=== PATIENT | male | born 1930 | race Caucasian/White ===

== ENCOUNTER 2018-08-21 09:44 | Inpatient (IN) | payer OTHER, MEDICARE ==
--- NOTE | 2018-08-21 11:59 | PDOC ---
History of Present Illness - General Chief Complaint: Urinary Catheter Problem Stated Complaint: URINARY CATHETER PROBLEM Time Seen by Provider: 08/21/18 10:36 History Source: Patient Exam Limitations: No Limitations - History of Present Illness Travel History: No Initial Comments: 08/21/18 11:29 88-year-old male with history of BPH presents to the ED with lateral pressure and urinary retention since this morning. Patient states last emptied his bag this morning at around 5 AM which he described as yellowish urine without foul odor. Patient states 10 days ago had his Duval catheter changed by his urologist in [place] which is changed monthly. Patient denies fever, chills, cloudy urine, back pain but does state constipation for 2 days. Patient is from [place] and has been here since Sunday and will be returning in a few days. Timing/Duration: reports: getting worse Quality: reports: mild, fullness Abdominal Pain Onset Location: reports: suprapubic Pain Radiation: reports: no radiation Activities at Onset: reports: none Aggravating Factors: improves with: None Alleviating Factors: improves with: None Past History - Travel Traveled outside of the country in the last 30 days: No Close contact w/someone who was outside of country & ill: No - Past Medical History Allergies/Adverse Reactions: Allergies Allergy/AdvReac Type Severity Reaction Status Date / Time amoxicillin Allergy Verified 08/21/18 09:52 Home Medications: Ambulatory Orders Ciprofloxacin [Cipro (Restricted To Id)] 500 mg PO BID 5 Days #10 tablet COPD: No Disorders: Yes (bph) - Immunization History Immunization Up to Date: Yes - Suicide/Smoking/Psychosocial Hx Smoking History: Never smoked Have you smoked in the past 12 months: No Hx Alcohol Use: No Drug/Substance Use Hx: No Substance Use Type: None Patient Lives Alone: No Lives with/in: spouse/SO Abd/GI Specific PMHX - Complaint Specific PMHX Other History: bph Review of Systems - Review of Systems Able to Perform ROS?: Yes Constitutional: No: Symptoms Reported HEENTM: No: Symptoms Reported Respiratory: No: Symptoms reported Cardiac (ROS): No: Symptoms Reported ABD/GI: Yes: Constipated, Abdominal cramping. No: Nausea, Vomiting : Yes: Other Musculoskeletal: No: Symptoms Reported Integumentary: No: Symptoms Reported *Physical Exam - Vital Signs Last Vital Signs Temp Pulse Resp BP Pulse Ox 97.5 F L 94 H 16 163/83 95 08/21/18 09:53 08/21/18 09:53 08/21/18 09:53 08/21/18 09:53 08/21/18 09:53 - Physical Exam General Appearance: Yes: Nourished, Appropriately Dressed. No: Apparent Distress Cardiovascular: positive: Regular Rhythm, Regular Rate. negative: Murmur Gastrointestinal/Abdominal: positive: Soft, Distended (midsuprapubic), Tenderness Musculoskeletal: negative: CVA Tenderness Extremity: positive: Normal Capillary Refill Integumentary: positive: Normal Color, Warm, Moist Moderate Sedation - Procedure Monitoring Vital Signs: Procedure Monitoring Vital Signs Temperature 97.5 F L 08/21/18 09:53 Pulse Rate 94 H 08/21/18 09:53 Respiratory Rate 16 08/21/18 09:53 Blood Pressure 163/83 08/21/18 09:53 O2 Sat by Pulse Oximetry (%) 95 08/21/18 09:53 ED Treatment Course - RADIOLOGY Radiology Studies Ordered: Category Date Time Status KUB (KID UR & BLAD) [RAD] Stat Radiology 08/21/18 11:46 Ordered Medical Decision Making - Medical Decision Making 08/21/18 12:02 Complaint: Suprapubic pressure urinary retention since 5 AM and constipation 2 days. Patient with history of BPH with Duval catheter changed approximately 9- 10 days ago in [place] by his urologist where he resides. Exam: Suprapubic distention and tenderness on exam irrigated #18 Duval catheter with urine but experienced resistance. Plan : #18 Duval catheter reinserted without difficulty and drained approximately 800 mL of cloudy yellow urine. Patient ordered for KUB secondary to constipation complaints and a urinalysis /urine culture 08/21/18 12:46 fecal Debris seen throughout the nondistended colon. No evidence of intestinal obstruction. Radiolucency, loop of bowel projecting over his left inferior pubis ramus, clinically correlate for hernia. 08/21/18 13:44 Previous urine culture shows ESBL which is sensitive to meropenem imipenem and Zosyn. Patient will be given meropenem. Patient did state he saw an infectious disease in [place] and was told that the bacteria is " normal" for him. Laboratory Tests 08/21/18 12:26 Urine Protein 2+ H Urine Glucose (UA) 1+ H Urine Blood 1+ H Urine Nitrite Negative Urine Bilirubin Negative Urine Urobilinogen Negative Ur Leukocyte Esterase 3+ H Urine WBC (Auto) 224 Urine RBC (Auto) 5 *DC/Admit/Observation/Transfer Diagnosis at time of Disposition: UTI (urinary tract infection), Duval catheter in place - Discharge Dispostion Decision to Admit order: Yes - Referrals - Patient Instructions - Post Discharge Activity
[2018-08-21 12:50] LABS: URINE APPEARANCE CLOUDY; URINE BILIRUBIN NEGATIVE (<2.0 mg/dL); URINE COLOR YELLOW; URINE GLUCOSE (UA) 1+ (NEGATIVE); URINE KETONE NEGATIVE (NEGATIVE); URINE LEUK ESTERASE 3+ (NEGATIVE); URINE NITRITE NEGATIVE (NEGATIVE); URINE PROTEIN 2+ (NEGATIVE); URINE UROBILINOGEN NEGATIVE mg/dL (0.2-1.0)
[2018-08-21 13:05] LABS: URINE BACTERIA MODERATE /hpf (NONE SEEN); URINE MUCUS RARE
[2018-08-21] MEDS ORDERED: MEROPENEM 500 MG in DEXTROSE 5%-WATER 100 ML IVPB ONE (13:29)
[2018-08-21 14:12] LABS: BASO % 1.2 % (0-2.0); EOS % 0.5 % (0-4.5); HEMATOCRIT 38.5 % (35.4-49); HEMOGLOBIN 13.6 GM/dL (11.7-16.9); LYMPH % 9.7 % (8-40); MCH 33.6 pg (25.7-33.7); MCHC 35.3 g/dl (32.0-35.9); MEAN PLT VOLUME 10.1 fl (7.5-11.1); MONO % 6.3 % (3.8-10.2); NEUT % 82.3 % (42.8-82.8); PLATELET COUNT 143 K/MM3 (134-434); RBC 4.05 M/mm3 (4.00-5.60); RDW 14.2 % (11.9-15.9)
[2018-08-21 14:47] LABS: ALBUMIN 3.6 g/dl (3.4-5.0); ALK PHOS 67 U/L (45-117); ANION GAP 6 MMOL/L (8-16); BLOOD UREA NITROGEN 33 mg/dL (7-18); CALCIUM 8.2 mg/dL (8.5-10.1); CHLORIDE 108 mmol/L (98-107); CO2 27 mmol/L (21-32); CREATININE 1.6 mg/dL (0.55-1.3); GLUCOSE,RANDOM 116 mg/dL (74-106); POTASSIUM 4.1 mmol/L (3.5-5.1); SGOT/AST 17 U/L (15-37); SGPT/ALT 17 U/L (13-61); SODIUM 141 mmol/L (136-145); TOT PROT 6.8 g/dl (6.4-8.2)
--- NOTE | 2018-08-21 16:30 | HP ---
CHIEF COMPLAINT: Urinary retention PCP: Dr. Dumont ([place]) Urologist in [place] HISTORY OF PRESENT ILLNESS: Patient is an 88 year old male presented to the ED with the chief complaint of urinary retention. As per the patient, he has had urinary retention secondary to BPH since 1.5 yrs ago, has carreon in place since 1.5 yrs, changed each month at his doctors office, last changed was 8 days ago in [place], then came to [place]. Noticed this morning that there was minimal urine in the catheter bag, had severe pain in the suprapubic area, hence came in to the ED for further evaluation. Has had urinary retentions in the past. Patient states he was recently treated for UTI in [place] and thinks it was ESBL. Denies fever, chills, rigors, sweating, chest pain, sob, cough, palpitation, nausea or vomiting, no urinary symptoms, Bowel movement 2 day ago. Sleep/appetite normal. Ambulates independently. Patient also reports he was taking Benzicaar and Statins, his physicians told him to lose weight. After loosing 20 lbs, he stopped taking those meds. Takes Lasix PRN for leg swelling and Finasteride PRN Urine culture 04/16/18 shows Proteus mirabilus-ESBl sensitive to zosyn meropenam and ertapenam In the ED, carreon was changed, drained about 1300 ml of dark yellow urine. ER course was notable for: (1) Positive UA. Urine cultures sent (2) KUB (3) IV Meropenam Recent Travel: Came back from [place] 8 days ago. PAST MEDICAL HISTORY: HTN (diet controlled )HLD (diet controlled), BPH s/p 2 laser surgeries. 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[employer]) Family History: Non contributory Allergies amoxicillin Allergy (Verified 08/21/18 09:52) HOME MEDICATIONS: Home Medications Medication Instructions Recorded Ciprofloxacin [Cipro (Restricted 500 mg PO BID 5 Days #10 tablet 04/16/18 To Id)] REVIEW OF SYSTEMS CONSTITUTIONAL: Absent: fever, chills, diaphoresis, generalized weakness, malaise, loss of appetite, weight change HEENT: Absent: rhinorrhea, nasal congestion, throat pain, throat swelling, difficulty swallowing, mouth swelling, ear pain, eye pain, visual changes CARDIOVASCULAR: Absent: chest pain, syncope, palpitations, irregular heart rate, lightheadedness , peripheral edema RESPIRATORY: Absent: cough, shortness of breath, dyspnea with exertion, orthopnea, wheezing, stridor, hemoptysis GASTROINTESTINAL: Absent: abdominal pain, abdominal distension, nausea, vomiting, diarrhea, constipation, melena, hematochezia GENITOURINARY: Present: Urinary retention Absent: dysuria, frequency, urgency, hesitancy, hematuria, flank pain, genital pain MUSCULOSKELETAL: Absent: myalgia, arthralgia, joint swelling, back pain, neck pain SKIN: Absent: rash, itching, pallor HEMATOLOGIC/IMMUNOLOGIC: Absent: easy bleeding, easy bruising, lymphadenopathy, frequent infections ENDOCRINE: Absent: unexplained weight gain, unexplained weight loss, heat intolerance, cold intolerance NEUROLOGIC: Absent: headache, focal weakness or paresthesias, dizziness, unsteady gait, seizure, mental status changes, bladder or bowel incontinence PSYCHIATRIC: Absent: anxiety, depression, suicidal or homicidal ideation, hallucinations. PHYSICAL EXAMINATION Vital Signs - 24 hr 08/21/18 08/21/18 09:53 15:08 Temperature 97.5 F L Pulse Rate 94 H Pulse Rate [ 79 Right Radial] Respiratory 16 18 Rate Blood Pressure 163/83 Blood Pressure 115/62 [Left Arm] O2 Sat by Pulse 95 94 L Oximetry (%) GENERAL: Elderly male, sitting comfortably in bed, Awake, alert, and fully oriented, in no acute distress, carreon in place draining urine. HEAD: Normal with no signs of trauma. EYES: EOM intact, no pallor or icterus. EARS, NOSE, THROAT: Ears normal. Moist mucous membranes. NECK: Supple. LUNGS: B/L Breath sounds equal, clear to auscultation bilaterally. No wheezes, and no crackles. No accessory muscle use. HEART: Regular rate and rhythm, normal S1 and S2 without murmur. ABDOMEN: Soft, mild tenderness in suprapubic area, BS +, no organomegaly. MUSCULOSKELETAL: Normal range of motion at all joints. No bony deformities or tenderness. No CVA tenderness. UPPER EXTREMITIES: 2+ pulses, warm, well-perfused. No cyanosis. No clubbing. No peripheral edema. LOWER EXTREMITIES: 2+ pulses, warm, well-perfused. No calf tenderness. No peripheral edema. NEUROLOGICAL: No facial droop. Power 5.5 in all ext. Cranial nerves II-XII intact. Normal speech. Gait not observed. PSYCHIATRIC: Cooperative. Good eye contact. Appropriate mood and affect. SKIN: Warm, dry, normal turgor, no rashes or lesions noted, normal capillary refill. Laboratory Results - last 24 hr 08/21/18 08/21/18 08/21/18 12:26 14:00 14:00 WBC 8.0 RBC 4.05 Hgb 13.6 Hct 38.5 MCV 95.0 MCH 33.6 MCHC 35.3 RDW 14.2 Plt Count 143 MPV 10.1 Absolute Neuts (auto) 6.5 Neutrophils % 82.3 Lymphocytes % 9.7 Monocytes % 6.3 Eosinophils % 0.5 Basophils % 1.2 Nucleated RBC % 0 Sodium 141 Potassium 4.1 Chloride 108 H Carbon Dioxide 27 Anion Gap 6 L BUN 33 H Creatinine 1.6 H Creat Clearance w eGFR 41.00 Random Glucose 116 H Calcium 8.2 L Total Bilirubin 1.0 AST 17 ALT 17 Alkaline Phosphatase 67 Total Protein 6.8 Albumin 3.6 Urine Color Yellow Urine Appearance Cloudy Urine pH 7.0 D Ur Specific [place] 1.015 Urine Protein 2+ H Urine Glucose (UA) 1+ H Urine Ketones Negative Urine Blood 1+ H Urine Nitrite Negative Urine Bilirubin Negative Urine Urobilinogen Negative Ur Leukocyte Esterase 3+ H Urine WBC (Auto) 224 Urine RBC (Auto) 5 Urine Bacteria Moderate Urine Mucus Rare ASSESSMENT/PLAN: Patient is an 88 year old male with significant past medical hx of HTN (diet controlled )HLD (diet controlled), BPH s/p 2 laser surgeries presented to the ED with the chief complaint of urinary retention. # Urinary tract infection Carreon since 1.5 yrs, changed every month, last changed 8 days ago, comes in with urinary retention Positive UA. No signs of sepsis. Admit to Med/Surg Urine culture 04/16/18 shows Proteus mirabilus-ESBl sensitive to zosyn meropenam and ertapenam One dose of Meropenam was given. (no allergic reaction) Will continue IV Meropenam Consult ID (Dr. Morgan) Urine culture pending # Urinary retention likely secondary to BPH Hx of BPH s/p 2 laser surgeries Continue Carreon (changed today) Continue Finasteride # Acute Kidney Injury likely prerenal creatinine 1.6 (baseline unknown). Will send urine electrolytes, renal ultrasound IV NS @ 83 mls/hr Avoid nephrotoxic drugs # Impacted Stool Seen in KUB. Last BM 2 days ago Start colace and senna # HTN/HLD diet controlled # FEN IV NS @ 83 ml/shr Electrolytes WNL Sodium controlled diet # Prophylaxis For DVT: On Heparin sq For GI: Not indicated # COde Status: Full Code Dispo: Admit to med.surg. Duration of stay unknown. Illness, Investigation and Plan of care explained to the patient and his daughter over the phone. They verbalized understanding. Case discussed with Dr. Noriega. Problem List - Problem (1) Carreon catheter in place Code(s): Z92.89 - PERSONAL HISTORY OF OTHER MEDICAL TREATMENT (2) UTI (urinary tract infection) Code(s): N39.0 - URINARY TRACT INFECTION, SITE NOT SPECIFIED Visit type - Emergency Visit Emergency Visit: Yes ED Registration Date: 08/21/18 Care time: The patient presented to the Emergency Department on the above date and was hospitalized for further evaluation of their emergent condition. - New Patient This patient is new to me today: Yes Date on this admission: 08/21/18 - Critical Care Critical Care patient: No
--- NOTE | 2018-08-21 16:54 | PN ---
Teaching Attending Note Name of Resident: Abena Almendarez ATTENDING PHYSICIAN STATEMENT I saw and evaluated the patient. I reviewed the resident's note and discussed the case with the resident. I agree with the resident's findings and plan as documented. SUBJECTIVE: Mr Preciado is a pleasant 88 year old male with history of BPH requiring chronic carreon placement who presents with abdominal pain and urinary retention. He is visiting from [place], prior to coming here he saw his urologist who changed his carreon catheter. He has it changed monthly. Last evening he noted that he was having less drainage and this morning he noted that he had no drainage and developed 10/10 suprapubic pain that radiated to his penis. He presented to the ER and his carreon was changed. After this he drained over 1000mL of purulent looking urine. He currently is without complaint. OBJECTIVE: Vital Signs - 24 hr 08/21/18 08/21/18 09:53 15:08 Temperature 36.4 C L Pulse Rate 94 H Pulse Rate [ 79 Right Radial] Respiratory 16 18 Rate Blood Pressure 163/83 Blood Pressure 115/62 [Left Arm] O2 Sat by Pulse 95 94 L Oximetry (%) Gen: nad Pulm: ctab w/o w/r/r CV: rrr w/o m/r/g Abd: +bs, s/nt/nd : carreon in place, clear urine with sediment Ext: no c/c/e CBC, BMP 08/21/18 14:00 08/21/18 14:00 Urine Test Results Urine Color Yellow 08/21/18 12: Urine Appearance Cloudy 08/21/18 12:26 Urine pH 7.0 (5.0-8.0) D 08/21/18 12:26 Ur Specific [place] 1.015 (1.010-1.035) 08/21/18 12:26 Urine Protein 2+ (NEGATIVE) H 08/21/18 12:26 Urine Glucose (UA) 1+ (NEGATIVE) H 08/21/18 12:26 Urine Ketones Negative (NEGATIVE) 08/21/18 12:26 Urine Blood 1+ (NEGATIVE) H 08/21/18 12:26 Urine Nitrite Negative (NEGATIVE) 08/21/18 12:26 Urine Bilirubin Negative (<2.0 mg/dL) 08/21/18 12:26 Ur Leukocyte Esterase 3+ (NEGATIVE) H 08/21/18 12:26 Urine Bacteria Moderate /hpf (NONE SEEN) 08/21/18 12:26 Urine Mucus Rare 08/21/18 12:26 Problem List - Problems (1) UTI (urinary tract infection) Assessment/Plan: -admit to med/surg -follow up urine cultures -history of E coli ESBL, continue merrem -ID consulted -carreon changed in ED Code(s): N39.0 - URINARY TRACT INFECTION, SITE NOT SPECIFIED Qualifiers: Urinary tract infection type: catheter-associated UTI Indwelling urinary catheter type: indwelling urethral catheter Encounter type: initial encounter Qualified Code(s): T83.511A - Infection and inflammatory reaction due to indwelling urethral catheter, initial encounter; N39.0 - Urinary tract infection , site not specified (2) BPH (benign prostatic hyperplasia) Assessment/Plan: -carreon changed -continue finasteride Code(s): N40.0 - BENIGN PROSTATIC HYPERPLASIA WITHOUT LOWER URINRY TRACT SYMP Qualifiers: Lower urinary tract symptom presence: symptoms present Lower urinary tract symptom detail: urinary retention Qualified Code(s): N40.1 - Benign prostatic hyperplasia with lower urinary tract symptoms; R33.8 - Other retention of urine (3) FARAZ (acute kidney injury) Assessment/Plan: -hydrate with IVF -renal ultrasound -monitor for improvement -may be CKD 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
[2018-08-21 20:10] VITALS: BMI 34.9
[2018-08-21] MEDS: HEPARIN NA (PORCINE) 5,000 UNITS/ML 1ML VIAL SQ SCH ×2 (21:59→22:02)
[2018-08-21] MEDS: SODIUM CHLORIDE 0.45% 1,000 ML IV SCH (21:59)
[2018-08-22] MEDS: HEPARIN NA (PORCINE) 5,000 UNITS/ML 1ML VIAL SQ SCH ×3 (05:15→22:40)
[2018-08-22] MEDS: MEROPENEM 1 GM in DEXTROSE 5%-WATER 100 ML IVPB SCH ×4 (07:17→17:08)
[2018-08-22 07:20] LABS: BASO % 1.2 % (0-2.0); EOS % 3.5 % (0-4.5); HEMATOCRIT 37.5 % (35.4-49); HEMOGLOBIN 12.2 GM/dL (11.7-16.9); LYMPH % 19.5 % (8-40); MCH 31.4 pg (25.7-33.7); MCHC 32.6 g/dl (32.0-35.9); MEAN CELL VOLUME 96.3 fl (80-96); MEAN PLT VOLUME 10.3 fl (7.5-11.1); MONO % 8.6 % (3.8-10.2); NEUT % 67.2 % (42.8-82.8); PLATELET COUNT 120 K/MM3 (134-434); RDW 14.5 % (11.9-15.9); WHITE BLOOD COUNT 5.7 K/mm3 (4.0-10.0)
[2018-08-22 07:33] LABS: ANION GAP 6 MMOL/L (8-16); BLOOD UREA NITROGEN 27 mg/dL (7-18); CALCIUM 7.7 mg/dL (8.5-10.1); CHLORIDE 111 mmol/L (98-107); CO2 25 mmol/L (21-32); CREATININE 1.4 mg/dL (0.55-1.3); GLUCOSE,RANDOM 99 mg/dL (74-106); MAGNESIUM 2.1 mg/dL (1.8-2.4); PHOSPHOROUS 2.9 mg/dL (2.5-4.9); POTASSIUM 3.6 mmol/L (3.5-5.1); SODIUM 142 mmol/L (136-145)
[2018-08-22] MEDS: SODIUM CHLORIDE 0.45% 1,000 ML IV SCH (10:55)
[2018-08-22] MEDS: FINASTERIDE 5 MG TABLET (FP) PO SCH (10:56)
[2018-08-22] MEDS: ASPIRIN COATED 81 MG TABLET.EC PO SCH (10:56)
[2018-08-22] MEDS: DOCUSATE SODIUM 100 MG CAPSULE (FP) PO PRN (10:56)
[2018-08-22] MEDS: SENNOSIDES 8.6MG TABLET (FP) PO PRN (10:57)
--- NOTE | 2018-08-22 11:02 | CON.ID ---
Consult Consult Specialty:: infectious diseases Referred by:: Reason for Consultation:: uti,complicated - History of Present Illness Chief Complaint: inability to pass urine and pain History of Present Illness: 88 year old male presented to the ED with the chief complaint of urinary retention. As per the patient, he has had urinary retention secondary to BPH since 1.5 yrs ago, has carreon in place since 1.5 yrs, changed each month at his doctors office, last changed was 8 days ago in [place], then came to [place]. Noticed this morning that there was minimal urine in the catheter bag, had severe pain in the suprapubic area, hence came in to the ED for further evaluation. Has had urinary retentions in the past. patient was send to infectious diseases in [place] since the urine was esbl and was treated for it ,the stain was mdr esbl denies any fever or chills in the ed patients catheter was changed and patient currently feeling much better also his urine is already positive for proteus again awaiting for the sensitivities - History Source History Provided By: Patient Limitations to Obtaining History: No Limitations - Alcohol/Substance Use Hx Alcohol Use: No - Smoking History Smoking history: Never smoked Have you smoked in the past 12 months: No Home Medications - Allergies Allergies/Adverse Reactions: Allergies Allergy/AdvReac Type Severity Reaction Status Date / Time amoxicillin Allergy Verified 08/21/18 09:52 - Home Medications Home Medications: Ambulatory Orders Ciprofloxacin [Cipro (Restricted To Id)] 500 mg PO BID 5 Days #10 tablet Review of Systems - Review of Systems Constitutional: reports: No Symptoms Eyes: reports: No Symptoms HENT: reports: No Symptoms Neck: reports: No Symptoms Cardiovascular: reports: No Symptoms Respiratory: reports: No Symptoms Gastrointestinal: reports: No Symptoms Genitourinary: reports: Other (urinary retention) Musculoskeletal: reports: No Symptoms Integumentary: reports: No Symptoms Neurological: reports: No Symptoms Endocrine: reports: No Symptoms Hematology/Lymphatic: reports: No Symptoms Psychiatric: reports: No Symptoms Physical Exam Vital Signs: Vital Signs Temperature 97.8 F 08/22/18 05:24 Pulse Rate 72 08/22/18 05:24 Respiratory Rate 18 08/22/18 05:24 Blood Pressure 155/72 08/22/18 05:24 O2 Sat by Pulse Oximetry (%) 97 08/21/18 21:00 Constitutional: Yes: Well Nourished, No Distress, Calm Eyes: Yes: Conjunctiva Clear HENT: Yes: Atraumatic, Normocephalic Neck: Yes: Supple, Trachea Midline Cardiovascular: Yes: Regular Rate and Rhythm Respiratory: Yes: Regular, CTA Bilaterally Gastrointestinal: Yes: Normal Bowel Sounds, Soft Renal/: Yes: Carreon Present Musculoskeletal: Yes: WNL Extremities: Yes: WNL Neurological: Yes: Alert, Oriented Psychiatric: Yes: Alert, Oriented Labs: CBC, BMP 08/22/18 06:15 08/22/18 06:15 Imaging - Results X-ray: Report Reviewed, Image Reviewed Ultrasound: Report Reviewed, Image Reviewed Assessment/Plan Problem List - Problems (1) UTI (urinary tract infection) Code(s): N39.0 - URINARY TRACT INFECTION, SITE NOT SPECIFIED Qualifiers: Urinary tract infection type: catheter-associated UTI Indwelling urinary catheter type: indwelling urethral catheter Encounter type: initial encounter Qualified Code(s): T83.511A - Infection and inflammatory reaction due to indwelling urethral catheter, initial encounter; N39.0 - Urinary tract infection , site not specified (2) BPH (benign prostatic hyperplasia) Code(s): N40.0 - BENIGN PROSTATIC HYPERPLASIA WITHOUT LOWER URINRY TRACT SYMP Qualifiers: Lower urinary tract symptom presence: symptoms present Lower urinary tract symptom detail: urinary retention Qualified Code(s): N40.1 - Benign prostatic hyperplasia with lower urinary tract symptoms; R33.8 - Other retention of urine (3) FARAZ (acute kidney injury) Code(s): N17.9 - ACUTE KIDNEY FAILURE, UNSPECIFIED patient was started on huseyin plan agree with huseyin await for sensitivities once we have that will adjust abx rest as per the team
--- NOTE | 2018-08-22 15:04 | PN ---
Teaching Attending Note Name of Resident: Abena Almendarez ATTENDING PHYSICIAN STATEMENT I saw and evaluated the patient. I reviewed the resident's note and discussed the case with the resident. I agree with the resident's findings and plan as documented. SUBJECTIVE: Mr Preciado is without complaint today. Denies cp, sob, n/v. Carreon draining without difficulty OBJECTIVE: Last Vital Signs Temp Pulse Resp BP Pulse Ox 36.9 C 79 20 109/73 97 08/22/18 14:46 08/22/18 14:46 08/22/18 14:46 08/22/18 14:46 08/21/18 21:00 Gen: nad Pulm: ctab w/o w/r/r CV: rrr w/o m/r/g Abd: +bs, s/nt/nd Ext: no c/c/e CBC, BMP 08/22/18 06:15 08/22/18 06:15 (1) UTI (urinary tract infection) Assessment/Plan: -case d/w ID -currently growing proteus -last admission was ESBL proteus -continue merrem Code(s): N39.0 - URINARY TRACT INFECTION, SITE NOT SPECIFIED Qualifiers: Urinary tract infection type: catheter-associated UTI Indwelling urinary catheter type: indwelling urethral catheter Encounter type: initial encounter Qualified Code(s): T83.511A - Infection and inflammatory reaction due to indwelling urethral catheter, initial encounter; N39.0 - Urinary tract infection , site not specified (2) BPH (benign prostatic hyperplasia) Assessment/Plan: -carreon changed -continue finasteride Code(s): N40.0 - BENIGN PROSTATIC HYPERPLASIA WITHOUT LOWER URINRY TRACT SYMP Qualifiers: Lower urinary tract symptom presence: symptoms present Lower urinary tract symptom detail: urinary retention Qualified Code(s): N40.1 - Benign prostatic hyperplasia with lower urinary tract symptoms; R33.8 - Other retention of urine (3) FARAZ (acute kidney injury) Assessment/Plan: -improved today -monitor for improvement Code(s): N17.9 - ACUTE KIDNEY FAILURE, UNSPECIFIED Problem List - Problems (1) UTI (urinary tract infection) Code(s): N39.0 - URINARY TRACT INFECTION, SITE NOT SPECIFIED Qualifiers: Urinary tract infection type: catheter-associated UTI Indwelling urinary catheter type: indwelling urethral catheter Encounter type: initial encounter Qualified Code(s): T83.511A - Infection and inflammatory reaction due to indwelling urethral catheter, initial encounter; N39.0 - Urinary tract infection , site not specified (2) BPH (benign prostatic hyperplasia) Code(s): N40.0 - BENIGN PROSTATIC HYPERPLASIA WITHOUT LOWER URINRY TRACT SYMP Qualifiers: Lower urinary tract symptom presence: symptoms present Lower urinary tract symptom detail: urinary retention Qualified Code(s): N40.1 - Benign prostatic hyperplasia with lower urinary tract symptoms; R33.8 - Other retention of urine (3) FARAZ (acute kidney injury) Code(s): N17.9 - ACUTE KIDNEY FAILURE, UNSPECIFIED
--- NOTE | 2018-08-22 16:32 | PN ---
Physical Exam: SUBJECTIVE: Patient seen and examined at bed side this morning. States he is feeling better. Good appetite. Abdominal pain has resolved. Denies nausea, vomiting, chest pain, sob, cough, palpitation. BM today. No acute overnight events. OBJECTIVE: Vital Signs Period Temp Pulse Resp BP Sys/Mae Pulse Ox Last 24 Hr 97.8 F-98.4 F 71-79 18-20 109-155/72-84 97-99 GENERAL: Elderly male, sitting comfortably in bed, Awake, alert, and fully oriented, in no acute distress, carreon in place draining urine. HEAD: Normal with no signs of trauma. EYES: EOM intact, no pallor or icterus. EARS, NOSE, THROAT: Ears normal. Moist mucous membranes. NECK: Supple. LUNGS: B/L Breath sounds equal, clear to auscultation bilaterally. No wheezes, and no crackles. No accessory muscle use. HEART: Regular rate and rhythm, normal S1 and S2 without murmur. ABDOMEN: Soft, mild tenderness in suprapubic area, BS +, no organomegaly. MUSCULOSKELETAL: Normal range of motion at all joints. No bony deformities or tenderness. No CVA tenderness. UPPER EXTREMITIES: 2+ pulses, warm, well-perfused. No cyanosis. No clubbing. No peripheral edema. LOWER EXTREMITIES: 2+ pulses, warm, well-perfused. No calf tenderness. No peripheral edema. NEUROLOGICAL: No facial droop. Power 5.5 in all ext. Cranial nerves II-XII intact. Normal speech. Gait not observed. PSYCHIATRIC: Cooperative. Good eye contact. Appropriate mood and affect. SKIN: Warm, dry, normal turgor, no rashes or lesions noted, normal capillary refill. Laboratory Results - last 24 hr 08/22/18 08/22/18 06:15 06:15 WBC 5.7 RBC 3.90 L Hgb 12.2 Hct 37.5 MCV 96.3 H MCH 31.4 MCHC 32.6 RDW 14.5 Plt Count 120 L MPV 10.3 Absolute Neuts (auto) 3.8 Neutrophils % 67.2 Lymphocytes % 19.5 D Monocytes % 8.6 Eosinophils % 3.5 D Basophils % 1.2 Nucleated RBC % 0 Sodium 142 Potassium 3.6 Chloride 111 H Carbon Dioxide 25 Anion Gap 6 L BUN 27 H Creatinine 1.4 H Creat Clearance w eGFR 47.83 Random Glucose 99 Calcium 7.7 L Phosphorus 2.9 Magnesium 2.1 Active Medications Generic Name Dose Route Start Last Admin Trade Name Freq PRN Reason Stop Dose Admin Aspirin 81 mg 08/22/18 10:00 08/22/18 10:56 Ecotrin - PO 81 mg DAILY SIMON Administration Docusate Sodium 100 mg 08/21/18 16:35 08/22/18 10:56 Colace - PO 100 mg BID PRN Administration CONSTIPATION Finasteride 5 mg 08/22/18 10:00 08/22/18 10:56 Proscar - PO 5 mg DAILY SIMON Administration Heparin Sodium (Porcine) 5,000 unit 08/21/18 22:00 08/22/18 14:52 Heparin - SQ 5,000 unit TID SIMON Administration Sodium Chloride 1,000 mls @ 83 mls/hr 08/21/18 16:30 08/22/18 10:55 1/2 Normal Saline IV 83 mls/hr ASDIR SIMON Administration Meropenem 1 gm/ Dextrose 100 mls @ 200 mls/hr 08/22/18 11:15 08/22/18 11:12 IVPB 200 mls/hr Q8H-IV SIMON Administration Senna 2 tab 08/21/18 22:00 08/22/18 10:57 Senna - PO 2 tab HS PRN Administration CONSTIPATION ASSESSMENT/PLAN: Patient is an 88 year old male with significant past medical hx of HTN (diet controlled )HLD (diet controlled), BPH s/p 2 laser surgeries presented to the ED with the chief complaint of urinary retention. # Urinary tract infection Positive UA. Urine culture grew Proteus, c/s pending Urine culture 04/16/18 shows Proteus mirabilus-ESBl sensitive to zosyn meropenam and ertapenam Continue IV Meropenem Day 2 Carreon since 1.5 yrs, changed every month, last changed 8 days ago prior to admission. Carreon changed in the ED 08/21/18 # Urinary retention likely secondary to BPH Hx of BPH s/p 2 laser surgeries Continue Carreon (changed 08/11/18) Continue Finasteride # Acute Kidney Injury likely prerenal creatinine 1.6---> 1.4 (baseline unknown). Renal ultrasound shows 8 cm left renal and 4 cm right renal cortical cysts. IV NS @ 83 mls/hr Avoid nephrotoxic drugs # Impacted Stool Seen in [facility]. Last BM 2 days ago Start colace and senna. Had BM today. # HTN/HLD diet controlled # FEN Discontinued IV fluids, can tolerate PO Electrolytes WNL Sodium controlled diet # Prophylaxis For DVT: On Heparin sq For GI: Not indicated # COde Status: Full Code Dispo: Admit to med.surg. Duration of stay unknown. Illness, Investigation and Plan of care explained to the patient and his daughter over the phone. They verbalized understanding. Case discussed with Dr. Noriega. Problem List - Problems (1) Carreon catheter in place Code(s): Z92.89 - PERSONAL HISTORY OF OTHER MEDICAL TREATMENT (2) UTI (urinary tract infection) Code(s): N39.0 - URINARY TRACT INFECTION, SITE NOT SPECIFIED Qualifiers: Urinary tract infection type: catheter-associated UTI Indwelling urinary catheter type: indwelling urethral catheter Encounter type: initial encounter Qualified Code(s): T83.511A - Infection and inflammatory reaction due to indwelling urethral catheter, initial encounter; N39.0 - Urinary tract infection , site not specified Visit type - Emergency Visit Emergency Visit: Yes ED Registration Date: 08/21/18 Care time: The patient presented to the Emergency Department on the above date and was hospitalized for further evaluation of their emergent condition. - New Patient This patient is new to me today: No - Critical Care Critical Care patient: No - Discharge Referral Referred to [facility] Med P.C.: No
[2018-08-23] MEDS: MEROPENEM 1 GM in DEXTROSE 5%-WATER 100 ML IVPB SCH ×5 (01:45→17:37)
[2018-08-23] MEDS: DOCUSATE SODIUM 100 MG CAPSULE (FP) PO PRN (06:23)
[2018-08-23] MEDS: HEPARIN NA (PORCINE) 5,000 UNITS/ML 1ML VIAL SQ SCH ×3 (06:23→21:37)
[2018-08-23] MEDS: SENNOSIDES 8.6MG TABLET (FP) PO PRN (06:23)
[2018-08-23 07:15] LABS: HEMATOCRIT 40.2 % (35.4-49); MCH 31.2 pg (25.7-33.7); MCHC 32.3 g/dl (32.0-35.9); MEAN CELL VOLUME 96.5 fl (80-96); MEAN PLT VOLUME 10.7 fl (7.5-11.1); PLATELET COUNT 131 K/MM3 (134-434); RBC 4.16 M/mm3 (4.00-5.60); WHITE BLOOD COUNT 7.3 K/mm3 (4.0-10.0)
[2018-08-23] MEDS: SODIUM CHLORIDE 0.45% 1,000 ML IV SCH (07:47)
[2018-08-23 07:50] LABS: ANION GAP 9 MMOL/L (8-16); BLOOD UREA NITROGEN 29 mg/dL (7-18); CALCIUM 7.9 mg/dL (8.5-10.1); CHLORIDE 111 mmol/L (98-107); CO2 23 mmol/L (21-32); CREATININE 1.5 mg/dL (0.55-1.3); GLUCOSE,RANDOM 102 mg/dL (74-106); POTASSIUM 4.2 mmol/L (3.5-5.1); SODIUM 142 mmol/L (136-145)
[2018-08-23] MEDS: ASPIRIN COATED 81 MG TABLET.EC PO SCH (09:33)
[2018-08-23] MEDS: FINASTERIDE 5 MG TABLET (FP) PO SCH (09:33)
--- NOTE | 2018-08-23 11:49 | PN ---
Progress Note, Physician History of Present Illness: stable doing well no new issues cx results noted - Current Medication List Current Medications: Active Medications Aspirin (Ecotrin -) 81 mg PO DAILY [facility] Last Admin: 08/23/18 09:33 Dose: 81 mg Docusate Sodium (Colace -) 100 mg PO BID PRN PRN Reason: CONSTIPATION Last Admin: 08/23/18 06:23 Dose: 100 mg Finasteride (Proscar -) 5 mg PO DAILY [facility] Last Admin: 08/23/18 09:33 Dose: 5 mg Heparin Sodium (Porcine) (Heparin -) 5,000 unit SQ TID [facility] Last Admin: 08/23/18 06:23 Dose: 5,000 unit Meropenem 1 gm/ Dextrose 100 mls @ 200 mls/hr IVPB Q8H-IV [facility] Last Admin: 08/23/18 09:32 Dose: 200 mls/hr Senna (Senna -) 2 tab PO HS PRN PRN Reason: CONSTIPATION Last Admin: 08/23/18 06:23 Dose: 2 tab - Objective Vital Signs: Vital Signs Temperature 97.9 F 08/23/18 09:00 Pulse Rate 57 L 08/23/18 09:00 Respiratory Rate 20 08/23/18 09:00 Blood Pressure 154/92 08/23/18 09:00 O2 Sat by Pulse Oximetry (%) 96 08/23/18 09:00 Constitutional: Yes: No Distress, Calm Cardiovascular: Yes: Regular Rate and Rhythm Respiratory: Yes: Regular, CTA Bilaterally Gastrointestinal: Yes: Normal Bowel Sounds, Soft Genitourinary: Yes: Duval Present Musculoskeletal: Yes: WNL Extremities: Yes: WNL Neurological: Yes: Alert, Oriented Psychiatric: Yes: Alert, Oriented Labs: CBC, BMP 08/23/18 06:15 08/23/18 06:15 Assessment/Plan Problem List - Problems (1) UTI (urinary tract infection) Code(s): N39.0 - URINARY TRACT INFECTION, SITE NOT SPECIFIED Qualifiers: Urinary tract infection type: catheter-associated UTI Indwelling urinary catheter type: indwelling urethral catheter Encounter type: initial encounter Qualified Code(s): T83.511A - Infection and inflammatory reaction due to indwelling urethral catheter, initial encounter; N39.0 - Urinary tract infection , site not specified (2) BPH (benign prostatic hyperplasia) Code(s): N40.0 - BENIGN PROSTATIC HYPERPLASIA WITHOUT LOWER URINRY TRACT SYMP Qualifiers: Lower urinary tract symptom presence: symptoms present Lower urinary tract symptom detail: urinary retention Qualified Code(s): N40.1 - Benign prostatic hyperplasia with lower urinary tract symptoms; R33.8 - Other retention of urine (3) FARAZ (acute kidney injury) Code(s): N17.9 - ACUTE KIDNEY FAILURE, UNSPECIFIED patient was started on huseyin plan change abx to oral as planned rest as per the team
[2018-08-23] MEDS ORDERED: PT OWN MED DRAWER 7, Y5N ONE (17:03)
--- NOTE | 2018-08-23 17:27 | PN ---
Teaching Attending Note Name of Resident: Abena Almendarez ATTENDING PHYSICIAN STATEMENT I saw and evaluated the patient. I reviewed the resident's note and discussed the case with the resident. I agree with the resident's findings and plan as documented. SUBJECTIVE: Mr Preciado is without complaint. Denies cp, sob, n/v. OBJECTIVE: Last Vital Signs Temp Pulse Resp BP Pulse Ox 36.7 C 65 20 150/75 96 08/23/18 13:56 08/23/18 13:56 08/23/18 13:56 08/23/18 13:56 08/23/18 09:00 Gen: nad Pulm: ctab w/o w/r/r CV: rrr w/o m/r/g Abd: +bs, s/nt/nd Ext: no c/c/e CBC, BMP 08/23/18 06:15 08/23/18 06:15 ASSESSMENT AND PLAN: (1) UTI (urinary tract infection) Assessment/Plan: -case d/w ID -growing proteus, not ESBL -continue merrem today -transition to oral cephalosporin for full course tomorrow -discharge tomorrow Code(s): N39.0 - URINARY TRACT INFECTION, SITE NOT SPECIFIED Qualifiers: Urinary tract infection type: catheter-associated UTI Indwelling urinary catheter type: indwelling urethral catheter Encounter type: initial encounter Qualified Code(s): T83.511A - Infection and inflammatory reaction due to indwelling urethral catheter, initial encounter; N39.0 - Urinary tract infection , site not specified (2) BPH (benign prostatic hyperplasia) Assessment/Plan: -carreon changed -continue finasteride Code(s): N40.0 - BENIGN PROSTATIC HYPERPLASIA WITHOUT LOWER URINRY TRACT SYMP Qualifiers: Lower urinary tract symptom presence: symptoms present Lower urinary tract symptom detail: urinary retention Qualified Code(s): N40.1 - Benign prostatic hyperplasia with lower urinary tract symptoms; R33.8 - Other retention of urine (3) FARAZ (acute kidney injury) Assessment/Plan: -stable -suspect at baseline and has CKD Code(s): N17.9 - ACUTE KIDNEY FAILURE, UNSPECIFIED Problem List - Problems (1) UTI (urinary tract infection) Code(s): N39.0 - URINARY TRACT INFECTION, SITE NOT SPECIFIED Qualifiers: Urinary tract infection type: catheter-associated UTI Indwelling urinary catheter type: indwelling urethral catheter Encounter type: initial encounter Qualified Code(s): T83.511A - Infection and inflammatory reaction due to indwelling urethral catheter, initial encounter; N39.0 - Urinary tract infection , site not specified (2) BPH (benign prostatic hyperplasia) Code(s): N40.0 - BENIGN PROSTATIC HYPERPLASIA WITHOUT LOWER URINRY TRACT SYMP Qualifiers: Lower urinary tract symptom presence: symptoms present Lower urinary tract symptom detail: urinary retention Qualified Code(s): N40.1 - Benign prostatic hyperplasia with lower urinary tract symptoms; R33.8 - Other retention of urine (3) FARAZ (acute kidney injury) Code(s): N17.9 - ACUTE KIDNEY FAILURE, UNSPECIFIED
--- NOTE | 2018-08-23 18:01 | PN ---
Physical Exam: SUBJECTIVE: Patient seen and examined at bed side this morning. Symptoms have completely resolved. Denies Abdominal pain, nausea, vomiting, chest pain, sob, cough, palpitation. BM today. No acute overnight events. OBJECTIVE: Vital Signs Period Temp Pulse Resp BP Sys/Mae Pulse Ox Last 24 Hr 97.7 F-98.3 F 57-77 18-20 120-167/64-92 96-98 GENERAL: Elderly male, sitting comfortably in bed, Awake, alert, and fully oriented, in no acute distress, carreon in place draining urine. HEAD: Normal with no signs of trauma. EYES: EOM intact, no pallor or icterus. EARS, NOSE, THROAT: Ears normal. Moist mucous membranes. NECK: Supple. LUNGS: B/L Breath sounds equal, clear to auscultation bilaterally. No wheezes, and no crackles. No accessory muscle use. HEART: Regular rate and rhythm, normal S1 and S2 without murmur. ABDOMEN: Soft, mild tenderness in suprapubic area, BS +, no organomegaly. MUSCULOSKELETAL: Normal range of motion at all joints. No bony deformities or tenderness. No CVA tenderness. UPPER EXTREMITIES: 2+ pulses, warm, well-perfused. No cyanosis. No clubbing. No peripheral edema. LOWER EXTREMITIES: 2+ pulses, warm, well-perfused. No calf tenderness. No peripheral edema. NEUROLOGICAL: No facial droop. Power 5.5 in all ext. Cranial nerves II-XII intact. Normal speech. Gait not observed. PSYCHIATRIC: Cooperative. Good eye contact. Appropriate mood and affect. SKIN: Warm, dry, normal turgor, no rashes or lesions noted, normal capillary refill. Laboratory Results - last 24 hr 08/22/18 08/22/18 08/23/18 23:00 23:00 06:15 WBC 7.3 RBC 4.16 Hgb 13.0 Hct 40.2 MCV 96.5 H MCH 31.2 MCHC 32.3 RDW 14.0 Plt Count 131 L MPV 10.7 Sodium Potassium Chloride Carbon Dioxide Anion Gap BUN Creatinine Creat Clearance w eGFR Random Glucose Calcium Ur Random Sodium 82 Ur Random Potassium 44.7 Ur Random Chloride 102 L Urine Creatinine 111.0 H 08/23/18 06:15 WBC RBC Hgb Hct MCV MCH MCHC RDW Plt Count MPV Sodium 142 Potassium 4.2 Chloride 111 H Carbon Dioxide 23 Anion Gap 9 BUN 29 H Creatinine 1.5 H Creat Clearance w eGFR 44.17 Random Glucose 102 Calcium 7.9 L Ur Random Sodium Ur Random Potassium Ur Random Chloride Urine Creatinine Active Medications Generic Name Dose Route Start Last Admin Trade Name Freq PRN Reason Stop Dose Admin Aspirin 81 mg 08/22/18 10:00 08/23/18 09:33 Ecotrin - PO 81 mg DAILY SIMON Administration Docusate Sodium 100 mg 08/21/18 16:35 08/23/18 06:23 Colace - PO 100 mg BID PRN Administration CONSTIPATION Finasteride 5 mg 08/22/18 10:00 08/23/18 09:33 Proscar - PO 5 mg DAILY SIMON Administration Heparin Sodium (Porcine) 5,000 unit 08/21/18 22:00 08/23/18 13:33 Heparin - SQ 5,000 unit TID SIMON Administration Meropenem 1 gm/ Dextrose 100 mls @ 200 mls/hr 08/23/18 18:00 08/23/18 17:37 IVPB 200 mls/hr Q8H-IV SIMON Administration Senna 2 tab 08/21/18 22:00 08/23/18 06:23 Senna - PO 2 tab HS PRN Administration CONSTIPATION ASSESSMENT/PLAN: Patient is an 88 year old male with significant past medical hx of HTN (diet controlled )HLD (diet controlled), BPH s/p 2 laser surgeries presented to the ED with the chief complaint of urinary retention. # Urinary tract infection Urine culture grew Proteus, Not ESBL this time. Sensitive to cephalosporins. Urine culture 04/16/18 shows Proteus mirabilus-ESBl sensitive to zosyn meropenam and ertapenam Continue IV Meropenem Day 3 Switch to Ceftin x 4 more days tomorrow as per ID and can be discharged. Carreon changed in the ED 08/21/18 # Urinary retention likely secondary to BPH Hx of BPH s/p 2 laser surgeries Carreon since 1.5 yrs, changed every month, last changed 8 days ago prior to admission. Continue Carreon (changed 08/11/18) Continue Finasteride # Acute Kidney Injury likely prerenal creatinine 1.6---> 1.4 -->1.5 (baseline unknown). Renal ultrasound shows 8 cm left renal and 4 cm right renal cortical cysts. Avoid nephrotoxic drugs # Impacted Stool Seen in [facility]. Last BM 2 days ago Start colace and senna. Had BM yesterday. # HTN/HLD diet controlled # FEN Discontinued IV fluids, can tolerate PO Electrolytes WNL Sodium controlled diet # Prophylaxis For DVT: On Heparin sq For GI: Not indicated # COde Status: Full Code Dispo: Admit to med.surg. Discharge planning. Illness, Investigation and Plan of care explained to the patient. He verbalized understanding. Case discussed with Dr. Noriega. Problem List - Problems (1) Carreon catheter in place Code(s): Z92.89 - PERSONAL HISTORY OF OTHER MEDICAL TREATMENT (2) UTI (urinary tract infection) Code(s): N39.0 - URINARY TRACT INFECTION, SITE NOT SPECIFIED Qualifiers: Urinary tract infection type: catheter-associated UTI Indwelling urinary catheter type: indwelling urethral catheter Encounter type: initial encounter Qualified Code(s): T83.511A - Infection and inflammatory reaction due to indwelling urethral catheter, initial encounter; N39.0 - Urinary tract infection , site not specified Visit type - Emergency Visit Emergency Visit: Yes ED Registration Date: 08/21/18 Care time: The patient presented to the Emergency Department on the above date and was hospitalized for further evaluation of their emergent condition. - New Patient This patient is new to me today: No - Critical Care Critical Care patient: No - Discharge Referral Referred to [facility] Med P.C.: No
[2018-08-24] MEDS ORDERED: PT OWN MED DRAWER 7, Y5N ONE (02:02)
[2018-08-24] MEDS: MEROPENEM 1 GM in DEXTROSE 5%-WATER 100 ML IVPB SCH ×2 (02:26→09:01)
[2018-08-24] MEDS ORDERED: ACETAMINOPHEN 325 MG TABLET (FP) PO ONE (04:30)
[2018-08-24] MEDS: HEPARIN NA (PORCINE) 5,000 UNITS/ML 1ML VIAL SQ SCH ×2 (06:31→13:20)
[2018-08-24 07:14] LABS: HEMATOCRIT 40.7 % (35.4-49); HEMOGLOBIN 13.3 GM/dL (11.7-16.9); MCH 31.4 pg (25.7-33.7); MCHC 32.8 g/dl (32.0-35.9); MEAN CELL VOLUME 95.9 fl (80-96); MEAN PLT VOLUME 10.3 fl (7.5-11.1); PLATELET COUNT 124 K/MM3 (134-434); RBC 4.24 M/mm3 (4.00-5.60); RDW 13.7 % (11.9-15.9); WHITE BLOOD COUNT 5.7 K/mm3 (4.0-10.0)
[2018-08-24 07:37] LABS: ANION GAP 7 MMOL/L (8-16); BLOOD UREA NITROGEN 25 mg/dL (7-18); CALCIUM 7.9 mg/dL (8.5-10.1); CHLORIDE 108 mmol/L (98-107); CO2 27 mmol/L (21-32); CREATININE 1.5 mg/dL (0.55-1.3); GLUCOSE,RANDOM 89 mg/dL (74-106); SODIUM 141 mmol/L (136-145)
[2018-08-24] MEDS: FINASTERIDE 5 MG TABLET (FP) PO SCH (09:01)
[2018-08-24] MEDS: ASPIRIN COATED 81 MG TABLET.EC PO SCH (09:01)
--- NOTE | 2018-08-24 13:12 | DS ---
Physical Examination Vital Signs: Vital Signs Temperature 36.7 C 08/24/18 09:00 Pulse Rate 61 08/24/18 09:00 Respiratory Rate 20 08/24/18 09:00 Blood Pressure 139/87 08/24/18 09:00 O2 Sat by Pulse Oximetry (%) 97 08/24/18 09:00 Constitutional: Yes: Well Nourished, No Distress, Calm Cardiovascular: Yes: Regular Rate and Rhythm. No: Gallop, Murmur, Rub Respiratory: Yes: Regular, CTA Bilaterally. No: Rales, Rhonchi, Wheezes Gastrointestinal: Yes: Normal Bowel Sounds, Soft. No: Distention, Tenderness Extremities: Yes: WNL Edema: No Labs: CBC, BMP 08/24/18 06:00 08/24/18 06:00 Discharge Summary Reason For Visit: UTI Current Active Problems FARAZ (acute kidney injury) (Acute) BPH (benign prostatic hyperplasia) (Acute) Duval catheter in place (Acute) UTI (urinary tract infection) (Acute) Hospital Course: (1) UTI (urinary tract infection) Code(s): N39.0 - URINARY TRACT INFECTION, SITE NOT SPECIFIED Qualifiers: Urinary tract infection type: catheter-associated UTI Indwelling urinary catheter type: indwelling urethral catheter Encounter type: initial encounter Qualified Code(s): T83.511A - Infection and inflammatory reaction due to indwelling urethral catheter, initial encounter; N39.0 - Urinary tract infection , site not specified (2) BPH (benign prostatic hyperplasia) Code(s): N40.0 - BENIGN PROSTATIC HYPERPLASIA WITHOUT LOWER URINRY TRACT SYMP Qualifiers: Lower urinary tract symptom presence: symptoms present Lower urinary tract symptom detail: urinary retention Qualified Code(s): N40.1 - Benign prostatic hyperplasia with lower urinary tract symptoms; R33.8 - Other retention of urine (3) FARAZ (acute kidney injury) Code(s): N17.9 - ACUTE KIDNEY FAILURE, UNSPECIFIED Mr Preciado is a pleasant 88 year old male who came in with urinary retention and was found to have a catheter associated UTI. He was admitted to the hospital and started on merrem because his last admission in March was for proteus ESBL UTI. ID was consulted and continued merrem. Urine cultures resulted and it was not ESBL this time and was sensitive to all cephalosporins. He was transitioned to cefuroxime and ID approved. He is stable for discharge home and close follow up with his PCP and urologist in [place], [place]. 31 minutes spent in preparation of this discharge Condition: Good - Instructions Diet, Activity, Other Instructions: resume previous diet and activity Disposition: HOME - Home Medications Comprehensive Discharge Medication List: Ambulatory Orders Cefuroxime Axetil [Cefuroxime] 250 mg PO BID #14 tablet 08/24/18 Finasteride [Proscar -] 5 mg PO DAILY #30 tablet 08/24/18
--- NOTE | 2018-08-24 13:32 | PN ---
Progress Note, Physician History of Present Illness: doing well no issues feeling well - Current Medication List Current Medications: Active Medications Aspirin (Ecotrin -) 81 mg PO DAILY [facility] Last Admin: 08/24/18 09:01 Dose: 81 mg Docusate Sodium (Colace -) 100 mg PO BID PRN PRN Reason: CONSTIPATION Last Admin: 08/23/18 06:23 Dose: 100 mg Finasteride (Proscar -) 5 mg PO DAILY [facility] Last Admin: 08/24/18 09:01 Dose: 5 mg Heparin Sodium (Porcine) (Heparin -) 5,000 unit SQ TID [facility] Last Admin: 08/24/18 13:20 Dose: Not Given Senna (Senna -) 2 tab PO HS PRN PRN Reason: CONSTIPATION Last Admin: 08/23/18 06:23 Dose: 2 tab - Objective Vital Signs: Vital Signs Temperature 98.0 F 08/24/18 09:00 Pulse Rate 61 08/24/18 09:00 Respiratory Rate 20 08/24/18 09:00 Blood Pressure 139/87 08/24/18 09:00 O2 Sat by Pulse Oximetry (%) 97 08/24/18 09:00 Constitutional: Yes: No Distress, Calm Cardiovascular: Yes: Regular Rate and Rhythm Respiratory: Yes: Regular, CTA Bilaterally Gastrointestinal: Yes: Normal Bowel Sounds, Soft Genitourinary: Yes: Duval Present Musculoskeletal: Yes: WNL Extremities: Yes: WNL Neurological: Yes: Alert, Oriented Psychiatric: Yes: Alert, Oriented Labs: CBC, BMP 08/24/18 06:00 08/24/18 06:00 Assessment/Plan Problem List - Problems (1) UTI (urinary tract infection) Code(s): N39.0 - URINARY TRACT INFECTION, SITE NOT SPECIFIED Qualifiers: Urinary tract infection type: catheter-associated UTI Indwelling urinary catheter type: indwelling urethral catheter Encounter type: initial encounter Qualified Code(s): T83.511A - Infection and inflammatory reaction due to indwelling urethral catheter, initial encounter; N39.0 - Urinary tract infection , site not specified (2) BPH (benign prostatic hyperplasia) Code(s): N40.0 - BENIGN PROSTATIC HYPERPLASIA WITHOUT LOWER URINRY TRACT SYMP Qualifiers: Lower urinary tract symptom presence: symptoms present Lower urinary tract symptom detail: urinary retention Qualified Code(s): N40.1 - Benign prostatic hyperplasia with lower urinary tract symptoms; R33.8 - Other retention of urine (3) FARAZ (acute kidney injury) Code(s): N17.9 - ACUTE KIDNEY FAILURE, UNSPECIFIED patient was started on huseyin plan oral abx foleys care rest as per the team patient stable
[2018-08-24] MEDS ORDERED: CEFUROXIME AXETIL 250 MG TABLET PO SCH (14:00)
[2018-08-24 14:44] VITALS: BP 121/71; PULSE 91; TEMP 98.2
== END 2018-08-24 15:40 | disposition home or self-care (01) | DRG 699 ==
LOC: JER 09:44 → JERBED 13:58 → J7W 18:49
PROVIDERS: ADMIT Internal Medicine; ATTEND Internal Medicine
DX: T83.510A Infection and inflammatory reaction due to cystostomy catheter, initial encounter (principal); N39.0 Urinary tract infection, site not specified; N17.9 Acute kidney failure, unspecified; R33.8 Other retention of urine; N40.1 Benign prostatic hyperplasia with lower urinary tract symptoms; K59.00 Constipation, unspecified
CPT/HCPCS: 36415; 74018-TC-FY; 76775-TC; 80048; 80053; 81003; 81015; 82436; 82570; 83735; 84100; 84133; 84300; 85025; 85027; 87086; 87186; 99282-25; J1644

== ENCOUNTER 2019-06-19 06:33 | Inpatient (IN) | payer OTHER, MEDICARE ==
--- NOTE | 2019-06-19 07:31 | PDOC ---
History of Present Illness - General Stated Complaint: CATHETER PROBLEM - History of Present Illness Initial Comments: 89 year old male from [facility] with PMH of CHF,BPH (on finasteride with pending SPT) with indwelling Duval urinary retention, and history of CAUTIs presenting with decreased output into his leg bag during a 10 hour flight from [facility] to his family's home in [place] yesterday afternoon with arrival time of 16:00. He has had ESBL UTIs in the past and admitted as well. Most recent UTI was cephalosporin sensitive and treated with cefuroxime. He had an appointment with his urologist today but didn't feel comfortable flying back home with the clogged Duval. Patient denies fevers, chills, nausea, vomiting, or diarrhea. 06/19/19 07:30 Past History - Past Medical History Allergies/Adverse Reactions: Allergies Allergy/AdvReac Type Severity Reaction Status Date / Time amoxicillin Allergy Verified 06/19/19 08:11 Home Medications: Ambulatory Orders Finasteride [Proscar -] 5 mg PO DAILY #30 tablet 08/24/18 Anemia: No Asthma: No Cancer: No Cardiac Disorders: No CVA: No COPD: No CHF: No Dementia: No Diabetes: No GI Disorders: Yes Disorders: Yes (bph) HTN: Yes Hypercholesterolemia: No Liver Disease: No Seizures: No Thyroid Disease: No - Surgical History Abdominal Surgery: Yes Appendectomy: No Cardiac Surgery: No Cholecystectomy: No Lung Surgery: No Neurologic Surgery: No Orthopedic Surgery: Yes - Immunization History Immunization Up to Date: Yes - Psycho Social/Smoking Cessation Hx Smoking History: Never smoked Have you smoked in the past 12 months: No Hx Alcohol Use: No Drug/Substance Use Hx: No Substance Use Type: None Review of Systems - Review of Systems Constitutional: No: Chills, Diaphoresis, Fever HEENTM: No: Eye Pain, Blurred Vision, Tearing Respiratory: No: Cough, Orthopnea, Shortness of Breath Cardiac (ROS): No: Chest Pain, Edema, Irregular Heart Rate ABD/GI: No: Diarrhea, Nausea, Vomiting : Yes: Pain. No: Burning, Dysuria Musculoskeletal: No: Back Pain, Joint Pain Integumentary: No: Erythema, Flushing, Lesions Neurological: No: Headache, Numbness, Paresthesia, Tingling, Tremors, Weakness Psychiatric: No: Anxiety, Depression Hematologic/Lymphatic: No: Anemia, Blood Clots, Easy Bleeding *Physical Exam - Physical Exam General Appearance: Yes: Nourished, Appropriately Dressed. No: Apparent Distress HEENT: positive: EOMI, TRISTIN, Normal ENT Inspection, Normal Voice Neck: positive: Trachea midline, Normal Thyroid, Supple. negative: Tender, Rigid Respiratory/Chest: positive: Lungs Clear, Normal Breath Sounds. negative: Chest Tender, Respiratory Distress, Accessory Muscle Use Cardiovascular: positive: Regular Rhythm, Regular Rate Gastrointestinal/Abdominal: positive: Normal Bowel Sounds, Flat, Soft. negative : Tender Lymphatic: negative: Adenopathy, Tenderness Musculoskeletal: positive: Normal Inspection. negative: Decreased Range of Motion Extremity: positive: Normal Capillary Refill, Normal Inspection, Normal Range of Motion Integumentary: positive: Normal Color, Dry, Warm Neurologic: positive: Fully Oriented, Alert, Normal Mood/Affect, Normal Response , Motor Strength 12/29 ED Treatment Course - LABORATORY CBC & Chemistry Diagram: 06/19/19 08:22 06/19/19 08:22 Medical Decision Making - Medical Decision Making 89 year old male with history of ESBL UTIs presenting with decreased flow from catheter. Upon change of Duval there was a small clot expressed through the new 18 Yakut catheter placed and 1.2 Ls output. CKD demonstrated on labs with elevated WBC. Upon reevaluation patient was delirious and continued to speak to me in a language (presumed Cypriot) and was difficult to redirect to Pakistani again. 06/19/19 09:30 Patient given Meropenem 1 G and admitted to med surg. 06/19/19 10:32 Discharge - Discharge Information Problems reviewed: Yes Clinical Impression/Diagnosis: Duval catheter in place, Delirium BPH (benign prostatic hyperplasia) Qualifiers: Lower urinary tract symptom presence: symptoms present Lower urinary tract symptom detail: urinary obstruction Qualified Code(s): N40.1 - Benign prostatic hyperplasia with lower urinary tract symptoms Condition: Stable - Admission Yes - Follow up/Referral - Patient Discharge Instructions - Post Discharge Activity
[2019-06-19 08:34] LABS: BASO % 0.8 % (0-2.0); EOS % 1.7 % (0-4.5); HEMATOCRIT 38.7 % (35.4-49); LYMPH % 6.7 % (8-40); MCH 32.1 pg (25.7-33.7); MCHC 33.6 g/dl (32.0-35.9); MEAN CELL VOLUME 95.8 fl (80-96); MEAN PLT VOLUME 9.5 fl (7.5-11.1); MONO % 5.6 % (3.8-10.2); NEUT % 85.2 % (42.8-82.8); PLATELET COUNT 265 K/MM3 (134-434); RBC 4.04 M/mm3 (4.00-5.60); RDW 13.5 % (11.9-15.9)
[2019-06-19 08:51] LABS: EPI CELLS 2.3 /HPF (0-5/HPF); HYALINE CASTS 1 /lpf (0-8); PH,URINE 5.5 (5.0-8.0); URINE APPEARANCE CLEAR; URINE BACTERIA 456.9 /hpf (NEGATIVE); URINE BILIRUBIN NEGATIVE (NEGATIVE); URINE COLOR YELLOW; URINE GLUCOSE (UA) TRACE (NEGATIVE); URINE KETONE NEGATIVE (NEGATIVE); URINE LEUK ESTERASE 1+ (NEGATIVE); URINE NITRITE NEGATIVE (NEGATIVE); URINE PROTEIN 2+ (NEGATIVE); URINE RBC 72 /hpf (0-4); URINE UROBILINOGEN 0.2 mg/dL (0.2-1.0); URINE WBC 11 /hpf (0-5)
[2019-06-19 09:05] LABS: ALBUMIN 3.7 g/dl (3.4-5.0); BILIRUBIN,TOTAL 0.8 mg/dL (0.2-1); BLOOD UREA NITROGEN 30.6 mg/dL (7-18); CALCIUM 8.9 mg/dL (8.5-10.1); CREATININE 1.6 mg/dL (0.55-1.3); POTASSIUM 4.1 mmol/L (3.5-5.1); TOT PROT 7.3 g/dl (6.4-8.2)
[2019-06-19] MEDS ORDERED: MEROPENEM 1 GM in DEXTROSE 5%-WATER 100 ML IVPB ONE ×2 (09:48→22:00)
[2019-06-19] MEDS ORDERED: HEPARIN NA (PORCINE) 5,000 UNITS/ML 1ML VIAL SQ SCH (11:00)
--- NOTE | 2019-06-19 11:00 | HP ---
CHIEF COMPLAINT: urinary retention PCP: Dr. Conklin (uro) HISTORY OF PRESENT ILLNESS: 89M w/ pmhx of BPH (with chronic carreon due to urinary retention), hx of CAUTIs, HTN/HLD (diet-controlled) presents in the ED for urinary retention. Pt states he was noticed his catheter bag had been emptier than usual and requested his daughter to bring him to the hospital for further evaluation. States this has happened before where he has had blood clots in his catheter causing him to have suprapubic pain and so he wanted to prevent that from happening this time. Upon pt arrival, ED reported small clot in the catheter after which they replaced pt with a new catheter. Pt denies f/c, n/v, chest pain, sob, abd pain, suprapubic pain. Initially, pt was going to be discharged with PO abx, however it was witnessed by ED staff that pt began to be delirious, conversing only in Omani and unable to be re-directed. Upon my encounter, pt was AAOx3, speaking Georgian and able to answer questions appropriately. Of note, he admits to recently traveling from [facility] and arriving several days ago, now visiting his daughters in [place]. Additionally, pt was seen 2018 for the same symptoms, found to have cultures + ESBL UTI with sensitivity to cephalosporins and later discharged on Cefuroxime. ER course was notable for: (1) WBC 14, BUN/Cr 30.6/1.6; U/A 2+ Pro, 2+ Blo, 1+ LE, 11 WBC (2) Head CT ordered for delirium (3) Recent Travel: Arrived from [facility] on 06/16/19, was away for ~1 month PAST MEDICAL HISTORY: As per HPI PAST SURGICAL HISTORY: L hernia repair 2 laser procedures for BPH Social History: Smoking: Denies Alcohol: Social drinker Drugs: Denies , currently lives alone in [place], [place]; has 2 daughters in [place] ([place] and [place]) Currently retired, used to work for [employer] Allergies amoxicillin Allergy (Verified 06/19/19 08:11) HOME MEDICATIONS: Home Medications Medication Instructions Recorded Finasteride [Proscar -] 5 mg PO DAILY #30 tablet 08/24/18 REVIEW OF SYSTEMS CONSTITUTIONAL: Absent: fever, chills, diaphoresis, generalized weakness, malaise, loss of appetite, weight change HEENT: Absent: rhinorrhea, nasal congestion, throat pain, throat swelling, difficulty swallowing, mouth swelling, ear pain, eye pain, visual changes CARDIOVASCULAR: Absent: chest pain, syncope, palpitations, irregular heart rate, lightheadedness , peripheral edema RESPIRATORY: Absent: cough, shortness of breath, dyspnea with exertion, orthopnea, wheezing, stridor, hemoptysis GASTROINTESTINAL: Absent: abdominal pain, abdominal distension, nausea, vomiting, diarrhea, constipation, melena, hematochezia GENITOURINARY: Absent: dysuria, frequency, urgency, hesitancy, hematuria, flank pain, genital pain MUSCULOSKELETAL: Absent: myalgia, arthralgia, joint swelling, back pain, neck pain SKIN: Absent: rash, itching, pallor HEMATOLOGIC/IMMUNOLOGIC: +frequent CAUTIs Absent: easy bleeding, easy bruising, lymphadenopathy, frequent infections ENDOCRINE: Absent: unexplained weight gain, unexplained weight loss, heat intolerance, cold intolerance NEUROLOGIC: Absent: headache, focal weakness or paresthesias, dizziness, unsteady gait, seizure, mental status changes, bladder or bowel incontinence PHYSICAL EXAMINATION Vital Signs - 24 hr 06/19/19 06/19/19 06/19/19 07:32 07:35 09:45 Temperature 99.3 F 98.5 F 98.5 F Pulse Rate 97 H 91 H Pulse Rate [ 79 Left Radial] Respiratory 17 18 18 Rate Blood Pressure 221/98 H 123/76 Blood Pressure 120/70 [Left] O2 Sat by Pulse 100 96 97 Oximetry (%) GENERAL: Pleasant, well-appearing elderly male, NAD. AAOx3. Responds to questions appropriately. HEENT: AT/NC. EOMI. MMM. NECK: Normal range of motion, supple without lymphadenopathy, JVD, or masses. LUNGS: CTA B/L. No wheezes noted. Symmetric chest rise. HEART: RRR. Normal S1, S2. No murmurs noted. ABDOMEN: Soft, NT/ND. Normoactive bowel sounds. No masses noted.] : Carreon catheter in place. MUSCULOSKELETAL: Normal range of motion at all joints. No bony deformities or tenderness. No CVA tenderness. EXTREMITIES: 1+ peripheral edema noted b/l. Moves all extremities spontaneously. NEUROLOGICAL: Cranial nerves II-XII intact. Normal speech. SKIN: Warm, dry, normal turgor, no rashes or lesions noted, normal capillary refill. Laboratory Results - last 24 hr 06/19/19 06/19/19 06/19/19 08:22 08:22 08:35 WBC 14.0 H RBC 4.04 Hgb 13.0 Hct 38.7 MCV 95.8 MCH 32.1 MCHC 33.6 RDW 13.5 Plt Count 265 D MPV 9.5 Absolute Neuts (auto) 11.9 H Neutrophils % 85.2 H D Lymphocytes % 6.7 L D Monocytes % 5.6 Eosinophils % 1.7 Basophils % 0.8 Nucleated RBC % 0 Sodium 137 Potassium 4.1 Chloride 105 Carbon Dioxide 23 Anion Gap 9 BUN 30.6 H Creatinine 1.6 H Est GFR (CKD-EPI)AfAm 43.62 Est GFR (CKD-EPI)NonAf 37.64 Random Glucose 141 H Calcium 8.9 Total Bilirubin 0.8 AST 17 ALT 30 Alkaline Phosphatase 77 Total Protein 7.3 Albumin 3.7 Urine Color Yellow Urine Appearance Clear Urine pH 5.5 D Ur Specific [place] 1.015 Urine Protein 2+ H Urine Glucose (UA) Trace Urine Ketones Negative Urine Blood 2+ H Urine Nitrite Negative Urine Bilirubin Negative Urine Urobilinogen 0.2 Ur Leukocyte Esterase 1+ H Urine WBC (Auto) 11 Urine RBC (Auto) 72 Urine Casts (Auto) 1 U Epithel Cells (Auto) 2.3 Urine Bacteria (Auto) 456.9 ASSESSMENT/PLAN: 89M w/ pmhx of BPH (with chronic carreon due to urinary retention), hx of CAUTIs, HTN/HLD (diet-controlled) presents in the ED for AMS likely due to complicated UTI. #Acute Complicated UTI; 2/2 chronic carreon use due to urinary retention/BPH -Carreon changed in ED with small clot expressed -Merrem 1gm given x1 in ED; will continue given elevated WBC and significant hx of ESBL UTI -Merrem 1 gm Q12h; renally dosed given renal fxn -U/A showed 2+ Pro, 2+ Blo, 1+ LE, 11 WBC -UCx pending; await c/s -ID consulted #Acute Metabolic Encephalopathy -Stable. No signs of altered mental state during encounter -Head CT showed no acute IC pathology; moderate ventricular dilatation noted probably due to central atrophy, NPH may demonstrate similar appearance -Cont to monitor mental status #Hx of BPH; Cont home meds: Finasteride 5 QD #Hx of HTN/HLD; diet controlled. #Prophylaxis DVT: SQH #FEN -PO hydration -recheck lytes in AM -sodium/cholesterol-controlled diet Dispo -admit to med-surg Family Medical History Family History: Denies Visit type - Emergency Visit Emergency Visit: Yes ED Registration Date: 06/19/19 Care time: The patient presented to the Emergency Department on the above date and was hospitalized for further evaluation of their emergent condition. - New Patient This patient is new to me today: Yes Date on this admission: 06/19/19 - Critical Care Critical Care patient: No ATTENDING PHYSICIAN STATEMENT I saw and evaluated the patient. I reviewed the resident's note and discussed the case with the resident. I agree with the resident's findings and plan as documented. SUBJECTIVE: OBJECTIVE: ASSESSMENT AND PLAN:
--- NOTE | 2019-06-19 11:04 | PDOC ---
Documentation entered by Florence Melvin SCRIBE, acting as scribe for Henrietta Browning MD. Henrietta Browning MD: This documentation has been prepared by the Olegario lynn Sammi, SCRIBE, under my direction and personally reviewed by me in its entirety. I confirm that the documentation accurately reflects all work, treatment, procedures, and medical decision making performed by me. Attending Attestation - Resident Resident Name: Basil Olvera - ED Attending Attestation I have performed the following: I have examined & evaluated the patient, The case was reviewed & discussed with the resident, I agree w/resident's findings & plan, Exceptions are as noted - HPI HPI: 06/19/19 09:29 The patient is an 89 year old male who presents to the emergency department for evaluation of decreased urinary output from his catheter since 4pm yesterday with associated suprapubic pain and intermittent hematuria. The patient was flying home to [place] from [facility] with a layover here to visit family and was supposed to get on a flight to [place] today, but cannot due to his abdominal discomfort. He presents today to get his carreon changed. The patient denies fever, chills, nausea, vomiting, diarrhea, constipation, back pain, focal weakness/numbness. He denies all other complaints. PMH: CHF, BPH with indwelling Carreon urinary retention, CAUTIs - Physicial Exam PE: 06/19/19 10:13 agree with resident exam - Medical Decision Making 06/19/19 10:13 89yo M with chronic indwelling carreon presents to the ED with decreased UOP Carreon replaced with 1200cc of urine output UA concerning for infection Pt with ESBL in the past While in ED, had acute episode of confusion speaking to staff only in Belizean, with rapid resolution within 10 mins. NIHSS 0 CTH ordered Plan to cover with meropenem, admit for complicated UTI
[2019-06-19] MEDS ORDERED: MEROPENEM 1 GM VIAL (RESTRICTED TO ID) IVPB ONE ×2 (11:07→21:49)
[2019-06-19] MEDS: FINASTERIDE 5 MG TABLET (FP) PO SCH (12:32)
--- NOTE | 2019-06-19 12:38 | CON.ID ---
Consult Consult Specialty:: infectious diseases Referred by:: Joey Reason for Consultation:: ams,confusion,urinary retention - History of Present Illness Chief Complaint: urinary retention,ams History of Present Illness: 89M w/ pmhx of BPH (with chronic carreon due to urinary retention), hx of CAUTIs, HTN/HLD presents in the ED for urinary retention. Pt states he was noticed his catheter bag had been emptier than usual and requested his daughter to bring him to the hospital for further evaluation. States this has happened before where he has had blood clots in his catheter causing him to have suprapubic pain and so he wanted to prevent that from happening this time. Upon pt arrival , ED reported small clot in the catheter after which they replaced pt with a new catheter. Pt denies f/c, n/v, chest pain, sob, abd pain, suprapubic pain. Initially, pt was going to be discharged with PO abx, however it was witnessed by ED staff that pt began to be delirious, conversing only in Persian and unable to be re-directed. Upon my encounter, pt was AAOx3, speaking Citizen Of [place] and able to answer questions appropriately. Of note, he admits to recently traveling from [facility] and arriving several days ago, now visiting his daughters in [place]. - History Source History Provided By: Patient, Medical Record Limitations to Obtaining History: Poor Historian - Alcohol/Substance Use Hx Alcohol Use: No - Smoking History Smoking history: Never smoked Have you smoked in the past 12 months: No Home Medications - Allergies Allergies/Adverse Reactions: Allergies Allergy/AdvReac Type Severity Reaction Status Date / Time amoxicillin Allergy Verified 06/19/19 08:11 - Home Medications Home Medications: Ambulatory Orders RX: Finasteride [Proscar -] 5 mg PO DAILY #30 tablet 08/24/18 Review of Systems - Review of Systems Constitutional: reports: No Symptoms Eyes: reports: No Symptoms HENT: reports: No Symptoms Neck: reports: No Symptoms Cardiovascular: reports: No Symptoms Respiratory: reports: No Symptoms Gastrointestinal: reports: No Symptoms Genitourinary: reports: No Symptoms Musculoskeletal: reports: No Symptoms Integumentary: reports: No Symptoms Neurological: reports: Other (ams) Endocrine: reports: No Symptoms Hematology/Lymphatic: reports: No Symptoms Psychiatric: reports: No Symptoms Physical Exam Vital Signs: Vital Signs Temperature 98.5 F 06/19/19 09:45 Pulse Rate 79 06/19/19 09:45 Respiratory Rate 18 06/19/19 09:45 Blood Pressure 120/70 06/19/19 09:45 O2 Sat by Pulse Oximetry (%) 97 06/19/19 09:45 Constitutional: Yes: Well Nourished, No Distress, Calm Cardiovascular: Yes: Regular Rate and Rhythm Respiratory: Yes: Regular, CTA Bilaterally Gastrointestinal: Yes: Normal Bowel Sounds, Soft Renal/: Yes: Carreon Present Musculoskeletal: Yes: WNL Extremities: Yes: WNL Neurological: Yes: Alert Psychiatric: Yes: Alert Labs: CBC, BMP 06/19/19 08:22 06/19/19 08:22 Imaging - Results Cat Scan: Report Reviewed, Image Reviewed Assessment/Plan 89M w/ pmhx of BPH (with chronic carreon due to urinary retention), hx of CAUTIs, HTN/HLD (diet-controlled) presents in the ED for AMS likely due to complicated UTI. roblem List - Problems (1) BPH (benign prostatic hyperplasia) Code(s): N40.0 - BENIGN PROSTATIC HYPERPLASIA WITHOUT LOWER URINRY TRACT SYMP Qualifiers: Lower urinary tract symptom presence: symptoms present Lower urinary tract symptom detail: urinary obstruction Qualified Code(s): N40.1 - Benign prostatic hyperplasia with lower urinary tract symptoms; N13.8 - Other obstructive and reflux uropathy (2) Delirium Code(s): R41.0 - DISORIENTATION, UNSPECIFIED (3) Carreon catheter in place Code(s): Z92.89 - PERSONAL HISTORY OF OTHER MEDICAL TREATMENT (4) FARAZ (acute kidney injury) Code(s): N17.9 - ACUTE KIDNEY FAILURE, UNSPECIFIED (5) UTI (urinary tract infection) Code(s): N39.0 - URINARY TRACT INFECTION, SITE NOT SPECIFIED Qualifiers: Urinary tract infection type: catheter-associated UTI Indwelling urinary catheter type: indwelling urethral catheter Encounter type: initial encounter Qualified Code(s): T83.511A - Infection and inflammatory reaction due to indwelling urethral catheter, initial encounter; N39.0 - Urinary tract infection , site not specified Assessment/Plan Complicated UTI Urinary retention BPH Indwelling Carreon - Catheter changed FARAZ ?CKD will start patient on abx will await for cx report rest as per the team
--- NOTE | 2019-06-19 13:33 | PN ---
Teaching Attending Note Name of Resident: Cary Rosa ATTENDING PHYSICIAN STATEMENT I saw and evaluated the patient. I reviewed the resident's note and discussed the case with the resident. I agree with the resident's findings and plan as documented. SUBJECTIVE: Patient is an 89male with pmhx of BPH (with chronic carreon due to urinary retention), hx of CAUTIs, HTN/HLD (diet-controlled) presents in the ED for urinary retention. As per patient, his catheter bag had been emptier than usual and requested his daughter to bring him to the hospital for further evaluation and care. OBJECTIVE: Vital Signs Temperature 98.5 F 06/19/19 09:45 Pulse Rate 79 06/19/19 09:45 Respiratory Rate 18 06/19/19 09:45 Blood Pressure 120/70 06/19/19 09:45 O2 Sat by Pulse Oximetry (%) 97 06/19/19 09:45 GENERAL: The patient is awake, alert, and fully oriented, in no acute distress. HEAD: Normal with no signs of trauma. EYES: PERRL, extraocular movements intact, sclera anicteric, conjunctiva clear. ENT: Ears normal, oropharynx clear without exudates, moist mucous membranes. NECK: Trachea midline, full range of motion, supple. LUNGS: Breath sounds equal, clear to auscultation bilaterally, no wheezes, no crackles, no accessory muscle use. HEART: Regular rate and rhythm, S1, S2 without murmur, rub or gallop. ABDOMEN: Soft, NT,ND, normoactive bowel sounds, no guarding, no rebound, no hepatosplenomegaly, no masses. EXTREMITIES: 2+ pulses, warm, well-perfused, no edema. NEUROLOGICAL: Cranial nerves II through XII grossly intact. Normal speech, gait not observed. PSYCH: Normal mood, normal affect. SKIN: Warm, dry, normal turgor, no rashes or lesions noted CBCD : chronic carreon WBC 14.0 K/mm3 (4.0-10.0) H 06/19/19 08:22 RBC 4.04 M/mm3 (4.00-5.60) 06/19/19 08:22 Hgb 13.0 GM/dL (11.7-16.9) 06/19/19 08:22 Hct 38.7 % (35.4-49) 06/19/19 08:22 MCV 95.8 fl (80-96) 06/19/19 08:22 MCHC 33.6 g/dl (32.0-35.9) 06/19/19 08:22 RDW 13.5 % (11.9-15.9) 06/19/19 08:22 Plt Count 265 K/MM3 (134-434) D 06/19/19 08:22 MPV 9.5 fl (7.5-11.1) 06/19/19 08:22 CMP Sodium 137 mmol/L (136-145) 06/19/19 08:22 Potassium 4.1 mmol/L (3.5-5.1) 06/19/19 08:22 Chloride 105 mmol/L (98-107) 06/19/19 08:22 Carbon Dioxide 23 mmol/L (21-32) 06/19/19 08:22 Anion Gap 9 MMOL/L (8-16) 06/19/19 08:22 BUN 30.6 mg/dL (7-18) H 06/19/19 08:22 Creatinine 1.6 mg/dL (0.55-1.3) H 06/19/19 08:22 Random Glucose 141 mg/dL (74-106) H 06/19/19 08:22 Calcium 8.9 mg/dL (8.5-10.1) 06/19/19 08:22 Total Bilirubin 0.8 mg/dL (0.2-1) 06/19/19 08:22 AST 17 U/L (15-37) 06/19/19 08:22 ALT 30 U/L (13-61) 06/19/19 08:22 Alkaline Phosphatase 77 U/L (45-117) 06/19/19 08:22 Total Protein 7.3 g/dl (6.4-8.2) 06/19/19 08:22 Albumin 3.7 g/dl (3.4-5.0) 06/19/19 08:22 Current Medications Generic Name Dose Route Start Last Admin Trade Name Freq PRN Reason Stop Dose Admin Finasteride 5 mg 06/19/19 11:15 06/19/19 12:32 Proscar - PO 5 mg DAILY SIMON Administration Heparin Sodium (Porcine) 5,000 unit 06/19/19 14:00 Heparin - SQ TID SIMON Meropenem 1 gm/ Dextrose 100 mls @ 200 mls/hr 06/19/19 22:00 IVPB Q12H [facility] Home Medications Medication Instructions Recorded Finasteride [Proscar -] 5 mg PO DAILY #30 tablet 08/24/[address]: moderate ventricular dilatation is noted due to central atrophy. Normal pressure hydrocephalus may demonstrate a similar appearance ASSESSMENT AND PLAN: Patient is a 89yo male with Pmhx of BPH (with chronic carreon catheter due to having urinary retention), Hx of CAUTIs, HTN/HLD (diet-controlled) presents in the ED for AMS likely due to complicated UTI. #Acute Complicated UTI; with hx of Cautis and ESBL , on Meropenem 1gm continue as per ID Eddie. Robertson cx ordered Carreon changed in ED s/p Merrem 1gm given x1 in ED; will continue given elevated WBC and significant hx of ESBL UTI -Merrem 1 gm Q12h; renally dosed given renal fxn # Moderate ventricular dilatation with central atrophy. #Hx of BPH; Cont home meds: Finasteride 5 QD #Hx of HTN/HLD; diet controlled. DVT Prophylaxis: heparin sq
[2019-06-19] MEDS ORDERED: HEPARIN NA (PORCINE) 5,000 UNITS/ML 1ML VIAL ONE (13:56)
[2019-06-19] MEDS: HEPARIN NA (PORCINE) 5,000 UNITS/ML 1ML VIAL SQ SCH ×2 (14:00→22:18)
[2019-06-19 16:30] VITALS: BMI 29.4
[2019-06-19] MEDS ORDERED: MEROPENEM 1 GM in DEXTROSE 5%-WATER 100 ML IVPB SCH (19:00)
[2019-06-19] MEDS ORDERED: DEXTROSE 5%-WATER 100 ML IVPB ONE (21:49)
[2019-06-19] MEDS: MEROPENEM 1 GM in DEXTROSE 5%-WATER 100 ML IVPB SCH (22:17)
[2019-06-20] MEDS: HEPARIN NA (PORCINE) 5,000 UNITS/ML 1ML VIAL SQ SCH ×3 (05:35→22:18)
[2019-06-20 08:26] LABS: BLOOD UREA NITROGEN 24.9 mg/dL (7-18); CALCIUM 8.3 mg/dL (8.5-10.1); CREATININE 1.5 mg/dL (0.55-1.3)
[2019-06-20 08:44] LABS: HEMATOCRIT 35.9 % (35.4-49); HEMOGLOBIN 12.1 GM/dL (11.7-16.9); MCH 32.3 pg (25.7-33.7); MCHC 33.8 g/dl (32.0-35.9); MEAN CELL VOLUME 95.5 fl (80-96); PLATELET COUNT 242 K/MM3 (134-434); RBC 3.75 M/mm3 (4.00-5.60); WHITE BLOOD COUNT 7.5 K/mm3 (4.0-10.0)
[2019-06-20] MEDS ORDERED: MEROPENEM 1 GM VIAL (RESTRICTED TO ID) IVPB ONE ×2 (09:22→21:37)
[2019-06-20] MEDS ORDERED: DEXTROSE 5%-WATER 100 ML IVPB ONE ×2 (09:22→21:37)
[2019-06-20] MEDS: MEROPENEM 1 GM in DEXTROSE 5%-WATER 100 ML IVPB SCH ×2 (09:31→22:18)
[2019-06-20] MEDS: FINASTERIDE 5 MG TABLET (FP) PO SCH (09:31)
[2019-06-20] MEDS ORDERED: MEROPENEM 1 GM in DEXTROSE 5%-WATER 100 ML IVPB SCH (10:00)
--- NOTE | 2019-06-20 13:22 | EKG ---
Test Reason : Blood Pressure : / mmHG Vent. Rate : 073 BPM Atrial Rate : 073 BPM P-R Int : 192 ms QRS Dur : 116 ms QT Int : 392 ms P-R-T Axes : 046 -31 000 degrees QTc Int : 431 ms NORMAL SINUS RHYTHM LEFT AXIS DEVIATION CANNOT RULE OUT INFERIOR INFARCT , AGE UNDETERMINED NO PREVIOUS ECGS AVAILABLE Confirmed by SAHARA GRIMM MD ([id number]) on 06/20/2019 1:22:24 PM Referred By: VINITA COHN Confirmed By:SAHARA GRIMM MD
--- NOTE | 2019-06-20 14:48 | PN ---
Progress Note, Physician History of Present Illness: patient feels much better says he now feels better no fevers - Current Medication List Current Medications: Active Medications Finasteride (Proscar -) 5 mg PO DAILY [facility] Last Admin: 06/20/19 09:31 Dose: 5 mg Heparin Sodium (Porcine) (Heparin -) 5,000 unit SQ TID [facility] Last Admin: 06/20/19 05:35 Dose: 5,000 unit Meropenem 1 gm/ Dextrose 100 mls @ 200 mls/hr IVPB Q12H [facility] Last Admin: 06/20/19 09:31 Dose: 200 mls/hr - Objective Vital Signs: Vital Signs Temperature 97.3 F L 06/20/19 10:00 Pulse Rate 70 06/20/19 10:00 Respiratory Rate 18 06/20/19 10:00 Blood Pressure 141/67 06/20/19 10:00 O2 Sat by Pulse Oximetry (%) 98 06/19/19 21:00 Constitutional: Yes: No Distress, Calm Cardiovascular: Yes: S1, S2 Respiratory: Yes: Regular, CTA Bilaterally Gastrointestinal: Yes: Normal Bowel Sounds, Soft Musculoskeletal: Yes: WNL Extremities: Yes: WNL Neurological: Yes: Alert, Oriented Psychiatric: Yes: Alert, Oriented Labs: CBC, BMP 06/20/19 07:45 06/20/19 07:45 Assessment/Plan 89M w/ pmhx of BPH (with chronic carreon due to urinary retention), hx of CAUTIs, HTN/HLD (diet-controlled) presents in the ED for AMS likely due to complicated UTI. Acute Complicated UTi Acute Metabolic Encephalopathy BPH HTN/HLD plan continue abx await for identification of the organisms
--- NOTE | 2019-06-20 17:02 | PN ---
Physical Exam: SUBJECTIVE: Patient seen and examined 89 y/o pmh of bph w/ chronic carreon for retention, CAUTI, htn, hld, presents for urinary retention. Pt reports he is nauseous and spiting up small amount clear saliva. Pt reports no other overnight events, afebrile, asymptomatic. Denies f/c /n/v/d, sob, chest pain, abdominal pain. OBJECTIVE: Vital Signs Period Temp Pulse Resp BP Sys/Mae Pulse Ox Last 24 Hr 97.3 F-98.2 F 70-76 18-18 119-141/59-67 98 GENERAL: Cooperative, NAD. AAOx3. HEENT: AT/NC. EOMI. NECK: supple without lymphadenopathy, JVD, LUNGS: CTA B/L. No wheezes noted. HEART: RRR. Normal S1, S2. No mgr ABDOMEN: Soft, NT/ND. Normoactive bowel sounds. : Carreon catheter in place. MUSCULOSKELETAL: Normal range of motion at all joints. No bony deformities or tenderness. No CVA tenderness. EXTREMITIES: 1+ peripheral edema noted b/l. Moves all extremities spontaneously. NEUROLOGICAL: Cranial nerves II-XII intact. Normal speech. SKIN: Warm, dry, Laboratory Results - last 24 hr 06/20/19 06/20/19 07:45 07:45 WBC 7.5 RBC 3.75 L Hgb 12.1 Hct 35.9 MCV 95.5 MCH 32.3 MCHC 33.8 RDW 14.0 Plt Count 242 MPV 10.0 Sodium 141 Potassium 4.0 Chloride 108 H Carbon Dioxide 26 Anion Gap 8 BUN 24.9 H Creatinine 1.5 H Est GFR (CKD-EPI)AfAm 47.16 Est GFR (CKD-EPI)NonAf 40.69 Random Glucose 101 Calcium 8.3 L Active Medications Current Medications Finasteride (Proscar -) 5 mg PO DAILY [facility] Last Admin: 06/20/19 09:31 Dose: 5 mg Heparin Sodium (Porcine) (Heparin -) 5,000 unit SQ TID [facility] Last Admin: 06/20/19 15:28 Dose: 5,000 unit Meropenem 1 gm/ Dextrose 100 mls @ 200 mls/hr IVPB Q12H [facility] Last Admin: 06/20/19 09:31 Dose: 200 mls/hr ASSESSMENT/PLAN: 89M w/ pmhx of BPH, multiple previous CAUTIs, htn, hld presents in the ED for AMS is being managed for complicated UTI. #Acute Complicated UTI; 2/2 chronic carreon use due to urinary retention -Carreon had some clots -Continue Merrem 1gm -hx of ESBL UTI -Merrem 1 gm Q12h; renally dosed given renal fxn -U/A positive -UCx - group D strep -ID consulted #Acute Metabolic Encephalopathy -Stable. No signs of altered mental state -Head CT showed no acute IC pathology; moderate ventricular dilatation noted probably due to central atrophy, NPH may demonstrate similar appearance -Neuro checks #Hx of BPH Cont home meds: Finasteride 5 QD #Hx of HTN/HLD; diet controlled. #Prophylaxis DVT: SQH #FEN -PO hydration -sodium/cholesterol-controlled diet Dispo -neuro checks, cont abx, ID consult Visit type - Emergency Visit Emergency Visit: Yes ED Registration Date: 06/19/19 Care time: The patient presented to the Emergency Department on the above date and was hospitalized for further evaluation of their emergent condition. - New Patient This patient is new to me today: Yes Date on this admission: 06/23/19 - Critical Care Critical Care patient: No - Discharge Referral Referred to [facility] Med P.C.: No ATTENDING PHYSICIAN STATEMENT I saw and evaluated the patient. I reviewed the resident's note and discussed the case with the resident. I agree with the resident's findings and plan as documented. SUBJECTIVE: OBJECTIVE: ASSESSMENT AND PLAN:
--- NOTE | 2019-06-20 18:28 | PN ---
Teaching Attending Note Name of Resident: Jermaine Ambriz ATTENDING PHYSICIAN STATEMENT I saw and evaluated the patient. I reviewed the resident's note and discussed the case with the resident. I agree with the resident's findings and plan as documented. SUBJECTIVE: Patient is feeling better with no acute distress. OBJECTIVE: Vital Signs Temperature 98 F 06/20/19 15:00 Pulse Rate 72 06/20/19 15:00 Respiratory Rate 18 06/20/19 15:00 Blood Pressure 119/59 L 06/20/19 15:00 O2 Sat by Pulse Oximetry (%) 98 06/19/19 21:00 GENERAL: The patient is awake, alert, and fully oriented, in no acute distress. HEAD: Normal with no signs of trauma. EYES: PERRL, extraocular movements intact, sclera anicteric, conjunctiva clear. ENT: Ears normal, oropharynx clear without exudates, moist mucous membranes. NECK: Trachea midline, full range of motion, supple. LUNGS: Breath sounds equal, clear to auscultation bilaterally, no wheezes, no crackles, no accessory muscle use. HEART: Regular rate and rhythm, S1, S2 without murmur, rub or gallop. ABDOMEN: Soft, NT,ND, normoactive bowel sounds, no guarding, no rebound, no hepatosplenomegaly, no masses. EXTREMITIES: 2+ pulses, warm, well-perfused, no edema. NEUROLOGICAL: Cranial nerves II through XII grossly intact. Normal speech, gait not observed. PSYCH: Normal mood, normal affect. SKIN: Warm, dry, normal turgor, no rashes or lesions noted : carreon positive , chronic CBCD WBC 7.5 K/mm3 (4.0-10.0) 06/20/19 07:45 RBC 3.75 M/mm3 (4.00-5.60) L 06/20/19 07:45 Hgb 12.1 GM/dL (11.7-16.9) 06/20/19 07:45 Hct 35.9 % (35.4-49) 06/20/19 07:45 MCV 95.5 fl (80-96) 06/20/19 07:45 MCHC 33.8 g/dl (32.0-35.9) 06/20/19 07:45 RDW 14.0 % (11.9-15.9) 06/20/19 07:45 Plt Count 242 K/MM3 (134-434) 06/20/19 07:45 MPV 10.0 fl (7.5-11.1) 06/20/19 07:45 CMP Sodium 141 mmol/L (136-145) 06/20/19 07:45 Potassium 4.0 mmol/L (3.5-5.1) 06/20/19 07:45 Chloride 108 mmol/L (98-107) H 06/20/19 07:45 Carbon Dioxide 26 mmol/L (21-32) 06/20/19 07:45 Anion Gap 8 MMOL/L (8-16) 06/20/19 07:45 BUN 24.9 mg/dL (7-18) H 06/20/19 07:45 Creatinine 1.5 mg/dL (0.55-1.3) H 06/20/19 07:45 Random Glucose 101 mg/dL (74-106) 06/20/19 07:45 Calcium 8.3 mg/dL (8.5-10.1) L 06/20/19 07:45 Total Bilirubin 0.8 mg/dL (0.2-1) 06/19/19 08:22 AST 17 U/L (15-37) 06/19/19 08:22 ALT 30 U/L (13-61) 06/19/19 08:22 Alkaline Phosphatase 77 U/L (45-117) 06/19/19 08:22 Total Protein 7.3 g/dl (6.4-8.2) 06/19/19 08:22 Albumin 3.7 g/dl (3.4-5.0) 06/19/19 08:22 Current Medications Generic Name Dose Route Start Last Admin Trade Name Freq PRN Reason Stop Dose Admin Finasteride 5 mg 06/19/19 11:15 06/20/19 09:31 Proscar - PO 5 mg DAILY [facility] Administration Heparin Sodium (Porcine) 5,000 unit 06/19/19 14:00 06/20/19 15:28 Heparin - SQ 5,000 unit TID [facility] Administration Meropenem 1 gm/ Dextrose 100 mls @ 200 mls/hr 06/19/19 22:00 06/20/19 09:31 IVPB 200 mls/hr Q12H [facility] Administration Home Medications Medication Instructions Recorded Finasteride [Proscar -] 5 mg PO DAILY #30 tablet 08/24/18 Microbiology 06/19/19 08:50 Urine - Urine - Catheterized Urine Culture - Final Enterococcus Faecalis Head CT: moderate ventricular dilatation is noted due to central atrophy. Normal pressure hydrocephalus may demonstrate a similar appearance ASSESSMENT AND PLAN: Patient is a 89yo male with Pmhx of BPH (with chronic carreon catheter due to having urinary retention), Hx of CAUTIs, HTN/HLD (diet-controlled) presents in the ED for AMS likely due to complicated UTI. #Acute Complicated UTI; with hx of Cautis and ESBL , on Meropenem 1gm day #2 , ID on the case Carreon changed in ED s/p Merrem 1gm given x1 in ED; will continue given elevated WBC and significant hx of ESBL UTI # Moderate ventricular dilatation with central atrophy. #Hx of BPH; Cont home meds: Finasteride 5 QD #Hx of HTN/HLD; diet controlled. DVT Prophylaxis: heparin sq
[2019-06-21] MEDS: HEPARIN NA (PORCINE) 5,000 UNITS/ML 1ML VIAL SQ SCH ×3 (06:38→21:52)
[2019-06-21] MEDS ORDERED: DEXTROSE 5%-WATER 100 ML IVPB ONE (09:11)
[2019-06-21] MEDS ORDERED: MEROPENEM 1 GM VIAL (RESTRICTED TO ID) IVPB ONE (09:11)
[2019-06-21] MEDS: MEROPENEM 1 GM in DEXTROSE 5%-WATER 100 ML IVPB SCH (09:16)
[2019-06-21] MEDS: FINASTERIDE 5 MG TABLET (FP) PO SCH (09:16)
--- NOTE | 2019-06-21 10:32 | PN ---
Progress Note (short form) - Note Progress Note: Patient is comfortable with no acute distress. Vital Signs Temperature 97.8 F 06/21/19 07:49 Pulse Rate 74 06/21/19 07:49 Respiratory Rate 16 06/21/19 07:49 Blood Pressure 155/82 06/21/19 07:49 O2 Sat by Pulse Oximetry (%) 98 06/20/19 21:00 GENERAL: The patient is awake, alert, and fully oriented, in no acute distress. HEAD: Normal with no signs of trauma. EYES: PERRL, extraocular movements intact, sclera anicteric, conjunctiva clear. ENT: Ears normal, oropharynx clear without exudates, moist mucous membranes. NECK: Trachea midline, full range of motion, supple. LUNGS: Breath sounds equal, clear to auscultation bilaterally, no wheezes, no crackles, no accessory muscle use. HEART: Regular rate and rhythm, S1, S2 without murmur, rub or gallop. ABDOMEN: Soft, NT,ND, normoactive bowel sounds, no guarding, no rebound, no hepatosplenomegaly, no masses. EXTREMITIES: 2+ pulses, warm, well-perfused, no edema. NEUROLOGICAL: Cranial nerves II through XII grossly intact. Normal speech, gait not observed. PSYCH: Normal mood, normal affect. SKIN: Warm, dry, normal turgor, no rashes or lesions noted Chronic carreon catheter CBCD WBC 7.5 K/mm3 (4.0-10.0) 06/20/19 07:45 RBC 3.75 M/mm3 (4.00-5.60) L 06/20/19 07:45 Hgb 12.1 GM/dL (11.7-16.9) 06/20/19 07:45 Hct 35.9 % (35.4-49) 06/20/19 07:45 MCV 95.5 fl (80-96) 06/20/19 07:45 MCHC 33.8 g/dl (32.0-35.9) 06/20/19 07:45 RDW 14.0 % (11.9-15.9) 06/20/19 07:45 Plt Count 242 K/MM3 (134-434) 06/20/19 07:45 MPV 10.0 fl (7.5-11.1) 06/20/19 07:45 CMP Sodium 141 mmol/L (136-145) 06/20/19 07:45 Potassium 4.0 mmol/L (3.5-5.1) 06/20/19 07:45 Chloride 108 mmol/L (98-107) H 06/20/19 07:45 Carbon Dioxide 26 mmol/L (21-32) 06/20/19 07:45 Anion Gap 8 MMOL/L (8-16) 06/20/19 07:45 BUN 24.9 mg/dL (7-18) H 06/20/19 07:45 Creatinine 1.5 mg/dL (0.55-1.3) H 06/20/19 07:45 Random Glucose 101 mg/dL (74-106) 06/20/19 07:45 Calcium 8.3 mg/dL (8.5-10.1) L 06/20/19 07:45 Total Bilirubin 0.8 mg/dL (0.2-1) 06/19/19 08:22 AST 17 U/L (15-37) 06/19/19 08:22 ALT 30 U/L (13-61) 06/19/19 08:22 Alkaline Phosphatase 77 U/L (45-117) 06/19/19 08:22 Total Protein 7.3 g/dl (6.4-8.2) 06/19/19 08:22 Albumin 3.7 g/dl (3.4-5.0) 06/19/19 08:22 Current Medications Generic Name Dose Route Start Last Admin Trade Name Freq PRN Reason Stop Dose Admin Finasteride 5 mg 06/19/19 11:15 06/21/19 09:16 Proscar - PO 5 mg DAILY [facility] Administration Heparin Sodium (Porcine) 5,000 unit 06/19/19 14:00 06/21/19 06:38 Heparin - SQ 5,000 unit TID [facility] Administration Meropenem 1 gm/ Dextrose 100 mls @ 200 mls/hr 06/19/19 22:00 06/21/19 09:16 IVPB 200 mls/hr Q12H [facility] Administration Home Medications Medication Instructions Recorded Finasteride [Proscar -] 5 mg PO DAILY #30 tablet 08/24/18 Microbiology 06/19/19 08:50 Urine - Urine - Catheterized Urine Culture - Preliminary Enterococcus Faecalis Head CT: moderate ventricular dilatation is noted due to central atrophy. Normal pressure hydrocephalus may demonstrate a similar appearance ASSESSMENT AND PLAN: Patient is a 89yo male with Pmhx of BPH (with chronic carreon catheter due to having urinary retention), Hx of CAUTIs, HTN/HLD (diet-controlled) presents in the ED for AMS likely due to complicated UTI. #Acute Complicated UTI; Enterococcus Faecalis sensitivity positive for vaco. ordered by ID # Moderate ventricular dilatation with central atrophy. #Hx of BPH; Cont home meds: Finasteride 5 QD #Hx of HTN/HLD; diet controlled. DVT Prophylaxis: heparin sq Visit type - Emergency Visit Emergency Visit: Yes ED Registration Date: 06/19/19 Care time: The patient presented to the Emergency Department on the above date and was hospitalized for further evaluation of their emergent condition. - New Patient This patient is new to me today: No - Critical Care Critical Care patient: No - Discharge Referral Referred to [facility] Med P.C.: No
[2019-06-21] MEDS ORDERED: VANCOMYCIN 750 MG in DEXTROSE 5%-WATER - 150 ML IVPB SCH ×2 (14:00→14:29)
--- NOTE | 2019-06-21 14:02 | PN ---
Progress Note, Physician History of Present Illness: Pt is alert, feeling better. No specific complaints. - Current Medication List Current Medications: Active Medications Finasteride (Proscar -) 5 mg PO DAILY [facility] Last Admin: 06/21/19 09:16 Dose: 5 mg Heparin Sodium (Porcine) (Heparin -) 5,000 unit SQ TID [facility] Last Admin: 06/21/19 06:38 Dose: 5,000 unit Vancomycin HCl 750 mg/ (Dextrose) 150 mls @ 150 mls/hr IVPB Q24H [facility]; Protocol - Objective Vital Signs: Vital Signs Temperature 97.8 F 06/21/19 07:49 Pulse Rate 74 06/21/19 07:49 Respiratory Rate 16 06/21/19 07:49 Blood Pressure 155/82 06/21/19 07:49 O2 Sat by Pulse Oximetry (%) 98 06/21/19 09:00 Constitutional: Yes: No Distress, Calm Cardiovascular: Yes: Regular Rate and Rhythm Respiratory: Yes: Regular Gastrointestinal: Yes: Normal Bowel Sounds, Soft Genitourinary: Yes: Duval Present Extremities: Yes: WNL Integumentary: Yes: WNL Neurological: Yes: Alert Labs: CBC, BMP 06/20/19 07:45 06/20/19 07:45 Problem List - Problems (1) BPH (benign prostatic hyperplasia) Code(s): N40.0 - BENIGN PROSTATIC HYPERPLASIA WITHOUT LOWER URINRY TRACT SYMP Qualifiers: Lower urinary tract symptom presence: symptoms present Lower urinary tract symptom detail: urinary obstruction Qualified Code(s): N40.1 - Benign prostatic hyperplasia with lower urinary tract symptoms; N13.8 - Other obstructive and reflux uropathy (2) Delirium Code(s): R41.0 - DISORIENTATION, UNSPECIFIED (3) Duval catheter in place Code(s): Z92.89 - PERSONAL HISTORY OF OTHER MEDICAL TREATMENT (4) FARAZ (acute kidney injury) Code(s): N17.9 - ACUTE KIDNEY FAILURE, UNSPECIFIED (5) UTI (urinary tract infection) Code(s): N39.0 - URINARY TRACT INFECTION, SITE NOT SPECIFIED Qualifiers: Urinary tract infection type: catheter-associated UTI Indwelling urinary catheter type: indwelling urethral catheter Encounter type: initial encounter Qualified Code(s): T83.511A - Infection and inflammatory reaction due to indwelling urethral catheter, initial encounter; N39.0 - Urinary tract infection , site not specified Assessment/Plan Complicated UTI Urinary retention BPH Indwelling Duval Catheter changed FARAZ -- Urine Cx +E. faecalis -- d/c Meropenem, start Vancomycin with monitoring of renal function -- continue monitor -- Urology f/u
[2019-06-21] MEDS ORDERED: PT OWN MED DRAWER 7, Y5N ONE (16:17)
[2019-06-21] MEDS: VANCOMYCIN 750 MG in DEXTROSE 5%-WATER - 250 ML IVPB SCH (16:21)
[2019-06-22] MEDS: HEPARIN NA (PORCINE) 5,000 UNITS/ML 1ML VIAL SQ SCH ×3 (06:30→21:56)
[2019-06-22 08:06] LABS: BASO % 1.3 % (0-2.0); EOS % 9.1 % (0-4.5); HEMATOCRIT 37.4 % (35.4-49); HEMOGLOBIN 12.7 GM/dL (11.7-16.9); LYMPH % 17.8 % (8-40); MCH 32.2 pg (25.7-33.7); MEAN PLT VOLUME 9.2 fl (7.5-11.1); MONO % 8.7 % (3.8-10.2); NEUT % 63.1 % (42.8-82.8); PLATELET COUNT 246 K/MM3 (134-434); RBC 3.93 M/mm3 (4.00-5.60); RDW 13.9 % (11.9-15.9); WHITE BLOOD COUNT 6.8 K/mm3 (4.0-10.0)
[2019-06-22 08:29] LABS: BILIRUBIN,TOTAL 0.8 mg/dL (0.2-1); BLOOD UREA NITROGEN 20.9 mg/dL (7-18); CALCIUM 8.5 mg/dL (8.5-10.1); CREATININE 1.5 mg/dL (0.55-1.3); MAGNESIUM 2.3 mg/dL (1.8-2.4); POTASSIUM 4.1 mmol/L (3.5-5.1); TOT PROT 6.3 g/dl (6.4-8.2)
--- NOTE | 2019-06-22 09:09 | PN ---
Physical Exam: SUBJECTIVE: Patient seen and examined at bedside. Denies any acute complaints. OBJECTIVE: Vital Signs Period Temp Pulse Resp BP Sys/Mae Pulse Ox Last 24 Hr 97.9 F-98.6 F 65-70 14-20 144-150/70-80 98 GENERAL: A&Ox3, no acute distress EYES: PERRLA, EOMI ENT: Moist mucus membranes NECK: No JVD LUNGS: CTA, no wheezes HEART: RRR, systolic murmur auscultated on exam ABDOMEN: Soft, nontender, BS present, carreon present draining clear urine EXTREMITIES: 2+ pulses, no edema. NEUROLOGICAL: Cranial nerves II-XII intact. Laboratory Results - last 24 hr 06/22/19 06/22/19 07:25 07:25 WBC 6.8 RBC 3.93 L Hgb 12.7 Hct 37.4 MCV 95.0 MCH 32.2 MCHC 34.0 RDW 13.9 Plt Count 246 MPV 9.2 Absolute Neuts (auto) 4.3 Neutrophils % 63.1 D Lymphocytes % 17.8 D Monocytes % 8.7 Eosinophils % 9.1 H D Basophils % 1.3 Nucleated RBC % 0 Sodium 140 Potassium 4.1 Chloride 105 Carbon Dioxide 28 Anion Gap 6 L BUN 20.9 H Creatinine 1.5 H Est GFR (CKD-EPI)AfAm 47.16 Est GFR (CKD-EPI)NonAf 40.69 Random Glucose 89 Calcium 8.5 Phosphorus 3.0 Magnesium 2.3 Total Bilirubin 0.8 AST 18 ALT 23 Alkaline Phosphatase 62 Total Protein 6.3 L Albumin 3.0 L Active Medications Generic Name Dose Route Start Last Admin Trade Name Freq PRN Reason Stop Dose Admin Finasteride 5 mg 06/19/19 11:15 06/21/19 09:16 Proscar - PO 5 mg DAILY [facility] Administration Heparin Sodium (Porcine) 5,000 unit 06/19/19 14:00 06/22/19 06:30 Heparin - SQ 5,000 unit TID [facility] Administration Vancomycin HCl 750 mg/ 250 mls @ 150 mls/hr 06/21/19 14:30 06/21/19 16:21 Dextrose IVPB 150 mls/hr Q24H [facility] Administration Protocol ASSESSMENT/PLAN: 89 year old male with a history of BPH, CAUTI, hypertension, hyperlipidemia, chronic carreon admitted for complicated urinary tract infection #Urinary Tract Infection: complicated UTI due to chronic carreon, clear urine today -continue vancomycin per ID -ID consultation appreciated -will need urology followup as outpatient -will need to discuss PO antibiotic coverage as outpatient #Benign Prostatic Hyperplasia -continue finasteride 5mg QD #Hypertension/Hyperlipidemia: not on medications #Prophylaxis -heparin 5000 TID #FEN -no standing fluids -sodium/cholesterol controlled diet -lytes normal #Disposition -patient walked 20 feet with physical therapy -will need evaluation for rehab placement -likely DC tomorrow or the day after Visit type - Emergency Visit Emergency Visit: No - New Patient This patient is new to me today: Yes Date on this admission: 06/22/19 - Critical Care Critical Care patient: No ATTENDING PHYSICIAN STATEMENT I saw and evaluated the patient. I reviewed the resident's note and discussed the case with the resident. I agree with the resident's findings and plan as documented. SUBJECTIVE: OBJECTIVE: ASSESSMENT AND PLAN:
[2019-06-22] MEDS: FINASTERIDE 5 MG TABLET (FP) PO SCH (09:45)
--- NOTE | 2019-06-22 13:40 | PN ---
Progress Note, Physician History of Present Illness: Pt is alert, afebrile, comfortable. - Current Medication List Current Medications: Active Medications Finasteride (Proscar -) 5 mg PO DAILY [facility] Last Admin: 06/22/19 09:45 Dose: 5 mg Heparin Sodium (Porcine) (Heparin -) 5,000 unit SQ TID [facility] Last Admin: 06/22/19 06:30 Dose: 5,000 unit Vancomycin HCl 750 mg/ (Dextrose) 250 mls @ 150 mls/hr IVPB Q24H [facility]; Protocol Last Admin: 06/21/19 16:21 Dose: 150 mls/hr - Objective Vital Signs: Vital Signs Temperature 98.0 F 06/22/19 08:01 Pulse Rate 70 06/22/19 08:01 Respiratory Rate 14 06/22/19 08:01 Blood Pressure 145/70 06/22/19 08:01 O2 Sat by Pulse Oximetry (%) 98 06/22/19 09:00 Constitutional: Yes: No Distress Cardiovascular: Yes: Regular Rate and Rhythm Respiratory: Yes: Regular Gastrointestinal: Yes: Normal Bowel Sounds, Soft Genitourinary: Yes: Duval Present Integumentary: Yes: WNL Labs: CBC, BMP 06/22/19 07:25 06/22/19 07:25 Microbiology 06/19/19 08:50 Urine - Urine - Catheterized Urine Culture - Final Enterococcus Faecalis Problem List - Problems (1) BPH (benign prostatic hyperplasia) Code(s): N40.0 - BENIGN PROSTATIC HYPERPLASIA WITHOUT LOWER URINRY TRACT SYMP Qualifiers: Lower urinary tract symptom presence: symptoms present Lower urinary tract symptom detail: urinary obstruction Qualified Code(s): N40.1 - Benign prostatic hyperplasia with lower urinary tract symptoms; N13.8 - Other obstructive and reflux uropathy (2) Delirium Code(s): R41.0 - DISORIENTATION, UNSPECIFIED (3) Duval catheter in place Code(s): Z92.89 - PERSONAL HISTORY OF OTHER MEDICAL TREATMENT (4) FARAZ (acute kidney injury) Code(s): N17.9 - ACUTE KIDNEY FAILURE, UNSPECIFIED (5) UTI (urinary tract infection) Code(s): N39.0 - URINARY TRACT INFECTION, SITE NOT SPECIFIED Qualifiers: Urinary tract infection type: catheter-associated UTI Indwelling urinary catheter type: indwelling urethral catheter Encounter type: initial encounter Qualified Code(s): T83.511A - Infection and inflammatory reaction due to indwelling urethral catheter, initial encounter; N39.0 - Urinary tract infection , site not specified Assessment/Plan Complicated UTI Urinary retention BPH Indwelling Duval - Catheter changed FARAZ ?CKD -- Urine Cx +E. faecalis -- Continue Vancomycin with monitoring of renal function -- Urology f/u leukocytosis resolved Pt afebrile
[2019-06-22] MEDS ORDERED: PT OWN MED DRAWER 7, Y5N ONE ×2 (13:44→14:39)
[2019-06-22] MEDS: VANCOMYCIN 750 MG in DEXTROSE 5%-WATER - 250 ML IVPB SCH (14:42)
--- NOTE | 2019-06-22 18:21 | PN ---
Teaching Attending Note Name of Resident: Rajan Strong ATTENDING PHYSICIAN STATEMENT I saw and evaluated the patient. I reviewed the resident's note and discussed the case with the resident. I agree with the resident's findings and plan as documented. Patient is comfortable with no acute distress. Vital Signs Temperature 98.0 F 06/22/19 08:01 Pulse Rate 70 06/22/19 08:01 Respiratory Rate 14 06/22/19 08:01 Blood Pressure 145/70 06/22/19 08:01 O2 Sat by Pulse Oximetry (%) 98 06/22/19 09:00 GENERAL: The patient is awake, alert, and fully oriented, in no acute distress. HEAD: Normal with no signs of trauma. EYES: PERRL, extraocular movements intact, sclera anicteric, conjunctiva clear. ENT: Ears normal, oropharynx clear without exudates, moist mucous membranes. NECK: Trachea midline, full range of motion, supple. LUNGS: Breath sounds equal, clear to auscultation bilaterally, no wheezes, no crackles, no accessory muscle use. HEART: Regular rate and rhythm, S1, S2 without murmur, rub or gallop. ABDOMEN: Soft, NT,ND, normoactive bowel sounds, no guarding, no rebound, no hepatosplenomegaly, no masses. EXTREMITIES: 2+ pulses, warm, well-perfused, no edema. NEUROLOGICAL: Cranial nerves II through XII grossly intact. Normal speech, gait not observed. PSYCH: Normal mood, normal affect. SKIN: Warm, dry, normal turgor, no rashes or lesions noted Chronic carreon catheter Current Medications Generic Name Dose Route Start Last Admin Trade Name Arun PRN Reason Stop Dose Admin Finasteride 5 mg 06/19/19 11:15 06/22/19 09:45 Proscar - PO 5 mg DAILY [facility] Administration Heparin Sodium (Porcine) 5,000 unit 06/19/19 14:00 06/22/19 13:51 Heparin - SQ 5,000 unit TID [facility] Administration Vancomycin HCl 750 mg/ 250 mls @ 150 mls/hr 06/21/19 14:30 06/22/19 14:42 Dextrose IVPB 150 mls/hr Q24H [facility] Administration Protocol home Medications Medication Instructions Recorded Finasteride [Proscar -] 5 mg PO DAILY #30 tablet 08/24/18 Microbiology 06/19/19 08:50 Urine - Urine - Catheterized Urine Culture - Preliminary Enterococcus Faecalis Head CT: moderate ventricular dilatation is noted due to central atrophy. Normal pressure hydrocephalus may demonstrate a similar appearance ASSESSMENT AND PLAN: Patient is a 89yo male with Pmhx of BPH (with chronic carreon catheter due to having urinary retention), Hx of CAUTIs, HTN/HLD (diet-controlled) presents in the ED for AMS likely due to complicated UTI. #Acute Complicated UTI; Enterococcus Faecalis sensitivity positive for vanco. ordered by ID , will continue # Moderate ventricular dilatation with central atrophy. #Hx of BPH; Cont home meds: Finasteride 5 QD #Hx of HTN/HLD; diet controlled. DVT Prophylaxis: heparin sq patient walked only 20 feet , rehab placement
[2019-06-23] MEDS: HEPARIN NA (PORCINE) 5,000 UNITS/ML 1ML VIAL SQ SCH ×3 (06:41→21:54)
[2019-06-23] MEDS: FINASTERIDE 5 MG TABLET (FP) PO SCH (09:36)
[2019-06-23 10:25] LABS: BLOOD UREA NITROGEN 22.5 mg/dL (7-18); CALCIUM 8.7 mg/dL (8.5-10.1); CREATININE 1.5 mg/dL (0.55-1.3); POTASSIUM 4.2 mmol/L (3.5-5.1)
--- NOTE | 2019-06-23 12:08 | PN ---
Progress Note, Physician History of Present Illness: stable no new issues - Current Medication List Current Medications: Active Medications Finasteride (Proscar -) 5 mg PO DAILY [facility] Last Admin: 06/23/19 09:36 Dose: 5 mg Heparin Sodium (Porcine) (Heparin -) 5,000 unit SQ TID [facility] Last Admin: 06/23/19 06:41 Dose: 5,000 unit Vancomycin HCl 750 mg/ (Dextrose) 250 mls @ 150 mls/hr IVPB Q24H [facility]; Protocol Last Admin: 06/22/19 14:42 Dose: 150 mls/hr - Objective Vital Signs: Vital Signs Temperature 98.9 F 06/23/19 00:11 Pulse Rate 90 06/23/19 00:11 Respiratory Rate 20 06/23/19 00:11 Blood Pressure 140/80 06/23/19 00:11 O2 Sat by Pulse Oximetry (%) 98 06/22/19 20:27 Constitutional: Yes: No Distress, Calm Cardiovascular: Yes: S1, S2 Respiratory: Yes: Regular, CTA Bilaterally Gastrointestinal: Yes: Normal Bowel Sounds, Soft Musculoskeletal: Yes: WNL Extremities: Yes: WNL Neurological: Yes: Alert, Oriented Psychiatric: Yes: Alert, Oriented Labs: CBC, BMP 06/22/19 07:25 06/23/19 09:10 Assessment/Plan 89M w/ pmhx of BPH (with chronic carreon due to urinary retention), hx of CAUTIs, HTN/HLD (diet-controlled) presents in the ED for AMS likely due to complicated UTI. roblem List - Problems (1) BPH (benign prostatic hyperplasia) Code(s): N40.0 - BENIGN PROSTATIC HYPERPLASIA WITHOUT LOWER URINRY TRACT SYMP Qualifiers: Lower urinary tract symptom presence: symptoms present Lower urinary tract symptom detail: urinary obstruction Qualified Code(s): N40.1 - Benign prostatic hyperplasia with lower urinary tract symptoms; N13.8 - Other obstructive and reflux uropathy (2) Delirium Code(s): R41.0 - DISORIENTATION, UNSPECIFIED (3) Carreon catheter in place Code(s): Z92.89 - PERSONAL HISTORY OF OTHER MEDICAL TREATMENT (4) FARAZ (acute kidney injury) Code(s): N17.9 - ACUTE KIDNEY FAILURE, UNSPECIFIED (5) UTI (urinary tract infection) Code(s): N39.0 - URINARY TRACT INFECTION, SITE NOT SPECIFIED Qualifiers: Urinary tract infection type: catheter-associated UTI Indwelling urinary catheter type: indwelling urethral catheter Encounter type: initial encounter Qualified Code(s): T83.511A - Infection and inflammatory reaction due to indwelling urethral catheter, initial encounter; N39.0 - Urinary tract infection , site not specified Assessment/Plan Complicated UTI Urinary retention BPH Indwelling Carreon - Catheter changed FARAZ ?CKD -- Urine Cx +E. faecalis -- Continue Vancomycin with monitoring of renal function -- Urology f/u leukocytosis resolved
[2019-06-23] MEDS ORDERED: PT OWN MED DRAWER 7, Y5N ONE (14:56)
[2019-06-23] MEDS: VANCOMYCIN 750 MG in DEXTROSE 5%-WATER - 250 ML IVPB SCH (15:21)
--- NOTE | 2019-06-23 16:14 | PN ---
Teaching Attending Note Name of Resident: Jermaine Ambriz ATTENDING PHYSICIAN STATEMENT I saw and evaluated the patient. I reviewed the resident's note and discussed the case with the resident. I agree with the resident's findings and plan as documented. SUBJECTIVE: Patient is comfortable with no acute distress. Feels better Vital Signs Temperature 98 F 06/23/19 15:16 Pulse Rate 78 06/23/19 15:16 Respiratory Rate 20 06/23/19 15:16 Blood Pressure 119/72 06/23/19 15:16 O2 Sat by Pulse Oximetry (%) 98 06/22/19 20:27 GENERAL: The patient is awake, alert, and fully oriented, in no acute distress. HEAD: Normal with no signs of trauma. EYES: PERRL, extraocular movements intact, sclera anicteric, conjunctiva clear. ENT: Ears normal, oropharynx clear without exudates, moist mucous membranes. NECK: Trachea midline, full range of motion, supple. LUNGS: Breath sounds equal, clear to auscultation bilaterally, no wheezes, no crackles, no accessory muscle use. HEART: Regular rate and rhythm, S1, S2 without murmur, rub or gallop. ABDOMEN: Soft, NT,ND, normoactive bowel sounds, no guarding, no rebound, no hepatosplenomegaly, no masses. s/p lap repair of hernia in [place]. EXTREMITIES: 2+ pulses, warm, well-perfused, no edema. NEUROLOGICAL: Cranial nerves II through XII grossly intact. Normal speech, gait not observed. PSYCH: Normal mood, normal affect. SKIN: Warm, dry, normal turgor, no rashes or lesions noted : Chronic carreon catheter CBCD WBC 6.8 K/mm3 (4.0-10.0) 06/22/19 07:25 RBC 3.93 M/mm3 (4.00-5.60) L 06/22/19 07:25 Hgb 12.7 GM/dL (11.7-16.9) 06/22/19 07:25 Hct 37.4 % (35.4-49) 06/22/19 07:25 MCV 95.0 fl (80-96) 06/22/19 07:25 MCHC 34.0 g/dl (32.0-35.9) 06/22/19 07:25 RDW 13.9 % (11.9-15.9) 06/22/19 07:25 Plt Count 246 K/MM3 (134-434) 06/22/19 07:25 MPV 9.2 fl (7.5-11.1) 06/22/19 07:25 CMP Sodium 140 mmol/L (136-145) 06/23/19 09:10 Potassium 4.2 mmol/L (3.5-5.1) 06/23/19 09:10 Chloride 104 mmol/L (98-107) 06/23/19 09:10 Carbon Dioxide 28 mmol/L (21-32) 06/23/19 09:10 Anion Gap 8 MMOL/L (8-16) 06/23/19 09:10 BUN 22.5 mg/dL (7-18) H 06/23/19 09:10 Creatinine 1.5 mg/dL (0.55-1.3) H 06/23/19 09:10 Random Glucose 158 mg/dL (74-106) H 06/23/19 09:10 Calcium 8.7 mg/dL (8.5-10.1) 06/23/19 09:10 Total Bilirubin 0.8 mg/dL (0.2-1) 06/22/19 07:25 AST 18 U/L (15-37) 06/22/19 07:25 ALT 23 U/L (13-61) 06/22/19 07:25 Alkaline Phosphatase 62 U/L (45-117) 06/22/19 07:25 Total Protein 6.3 g/dl (6.4-8.2) L 06/22/19 07:25 Albumin 3.0 g/dl (3.4-5.0) L 06/22/19 07:25 Current Medications Generic Name Dose Route Start Last Admin Trade Name Freq PRN Reason Stop Dose Admin Finasteride 5 mg 06/19/19 11:15 06/23/19 09:36 Proscar - PO 5 mg DAILY [facility] Administration Heparin Sodium (Porcine) 5,000 unit 06/19/19 14:00 06/23/19 15:21 Heparin - SQ 5,000 unit TID [facility] Administration Vancomycin HCl 750 mg/ 250 mls @ 150 mls/hr 06/21/19 14:30 06/23/19 15:21 Dextrose IVPB 150 mls/hr Q24H [facility] Administration Protocol Lactobacillus Acidophilus 1 tab 06/23/19 22:00 Bacid - PO HS [facility] Home Medications Medication Instructions Recorded Finasteride [Proscar -] 5 mg PO DAILY #30 tablet 08/24/18 06/19/19 08:50 Urine - Urine - Catheterized Urine Culture - Preliminary Enterococcus Faecalis Head CT: moderate ventricular dilatation is noted due to central atrophy. Normal pressure hydrocephalus may demonstrate a similar appearance ASSESSMENT AND PLAN: Patient is a 89yo male with Pmhx of BPH (with chronic carreon catheter due to having urinary retention), Hx of CAUTIs, HTN/HLD (diet-controlled) presents in the ED for AMS likely due to complicated UTI. #Acute Complicated UTI; Enterococcus Faecalis sensitivity positive for vanco, 2 more days of IV vanco as per Eddie and patient can be dischorged home. # Moderate ventricular dilatation with central atrophy. #Hx of BPH; Cont home meds: Finasteride 5 QD #Hx of HTN/HLD; diet controlled. DVT Prophylaxis: heparin sq patient walked 75 feet
--- NOTE | 2019-06-23 17:29 | PN ---
Physical Exam: SUBJECTIVE: Patient seen and examined 89 y/o pmh of bph w/ chronic carreon for retention, CAUTI, htn, hld, presents for urinary retention. Pt reports he is nauseous and spiting up small amount clear saliva. Pt reports no other overnight events, afebrile, asymptomatic. No further c/o or issues. Denies f/c/n/v/d, sob, chest pain, abdominal pain. OBJECTIVE: Vital Signs Last Vital Signs Temp Pulse Resp BP Pulse Ox 98 F 78 20 119/72 98 06/23/19 15:16 06/23/19 15:16 06/23/19 15:16 06/23/19 15:16 06/22/19 20:27 GENERAL: Cooperative, NAD. AAOx3. HEENT: AT/NC. EOMI. NECK: supple without lymphadenopathy, JVD, LUNGS: CTA B/L. No wheezes noted. HEART: RRR. Normal S1, S2. No mgr ABDOMEN: Soft, NT/ND. Normoactive bowel sounds. Blencoe removed, surgical scar healing well. : Carreon catheter in place. MUSCULOSKELETAL: Normal range of motion at all joints. No bony deformities or tenderness. No CVA tenderness. EXTREMITIES: 1+ peripheral edema noted b/l. Moves all extremities spontaneously. NEUROLOGICAL: Cranial nerves II-XII intact. Normal speech. SKIN: Warm, dry, Laboratory Results - last 24 hr 06/23/19 06/23/19 09:10 11:10 Sodium 140 Potassium 4.2 Chloride 104 Carbon Dioxide 28 Anion Gap 8 BUN 22.5 H Creatinine 1.5 H Est GFR (CKD-EPI)AfAm 47.16 Est GFR (CKD-EPI)NonAf 40.69 Random Glucose 158 H Calcium 8.7 Random Vancomycin 7.3 L Active Medications Current Medications Finasteride (Proscar -) 5 mg PO DAILY [facility] Last Admin: 06/23/19 09:36 Dose: 5 mg Heparin Sodium (Porcine) (Heparin -) 5,000 unit SQ TID [facility] Last Admin: 06/23/19 15:21 Dose: 5,000 unit Vancomycin HCl 750 mg/ (Dextrose) 250 mls @ 150 mls/hr IVPB Q24H [facility]; Protocol Last Admin: 06/23/19 15:21 Dose: 150 mls/hr Lactobacillus Acidophilus (Bacid -) 1 tab PO HS [facility] Home Medications Medication Instructions Recorded Finasteride [Proscar -] 5 mg PO DAILY #30 tablet 08/24/18 ASSESSMENT/PLAN: 89M w/ pmhx of BPH, multiple previous CAUTIs, htn, hld presents in the ED for AMS is being managed for complicated UTI. #Acute Complicated UTI; 2/2 chronic carreon use due to urinary retention -Urine Cx +E. faecalis -Continue Vancomycin (D3) with monitoring of renal function- as per ID -Vanc trough for the am -Vanc 750 for 3 more days -Probiotic given -hx of ESBL UTI -U/A positive -UCx -group D strep -Urology f/u #Acute Metabolic Encephalopathy -Stable. No signs of altered mental state -Head CT showed no acute IC pathology; moderate ventricular dilatation noted probably due to central atrophy, NPH may demonstrate similar appearance -Neuro checks #Inguinal Hernia Surgery was done in [facility] labs stable Blencoe removed Surgical site healing well #Hx of BPH Cont home meds: Finasteride 5 QD #Hx of HTN/HLD; diet controlled. Patient only walked 20 ft on walker #Prophylaxis DVT: SQH #FEN -PO hydration -sodium/cholesterol-controlled diet Dispo -cont abx, monitor neurologically, urology f/u Visit type - Emergency Visit Emergency Visit: Yes ED Registration Date: 06/19/19 Care time: The patient presented to the Emergency Department on the above date and was hospitalized for further evaluation of their emergent condition. - New Patient This patient is new to me today: Yes Date on this admission: 06/24/19 - Critical Care Critical Care patient: No - Discharge Referral Referred to [facility] No ATTENDING PHYSICIAN STATEMENT I saw and evaluated the patient. I reviewed the resident's note and discussed the case with the resident. I agree with the resident's findings and plan as documented. SUBJECTIVE: OBJECTIVE: ASSESSMENT AND PLAN:
[2019-06-23] MEDS: LACTOBACILLUS ACIDOPHILUS 1 TABLET PO SCH (21:54)
[2019-06-24] MEDS: HEPARIN NA (PORCINE) 5,000 UNITS/ML 1ML VIAL SQ SCH ×3 (06:07→21:25)
[2019-06-24 08:54] LABS: BASO % 1.5 % (0-2.0); EOS % 7.3 % (0-4.5); HEMOGLOBIN 12.8 GM/dL (11.7-16.9); LYMPH % 17.3 % (8-40); MCH 31.9 pg (25.7-33.7); MCHC 32.9 g/dl (32.0-35.9); MEAN CELL VOLUME 96.8 fl (80-96); MEAN PLT VOLUME 9.8 fl (7.5-11.1); MONO % 9.2 % (3.8-10.2); NEUT % 64.7 % (42.8-82.8); PLATELET COUNT 244 K/MM3 (134-434); RBC 4.03 M/mm3 (4.00-5.60); WHITE BLOOD COUNT 7.2 K/mm3 (4.0-10.0)
[2019-06-24 09:26] LABS: ALBUMIN 3.2 g/dl (3.4-5.0); BILIRUBIN,TOTAL 0.8 mg/dL (0.2-1); BLOOD UREA NITROGEN 25.4 mg/dL (7-18); CALCIUM 8.3 mg/dL (8.5-10.1); CREATININE 1.3 mg/dL (0.55-1.3); POTASSIUM 4.2 mmol/L (3.5-5.1); TOT PROT 6.4 g/dl (6.4-8.2)
[2019-06-24] MEDS ORDERED: PT OWN MED DRAWER 7, Y5N ONE (10:40)
[2019-06-24] MEDS: FINASTERIDE 5 MG TABLET (FP) PO SCH (10:47)
--- NOTE | 2019-06-24 11:54 | PN ---
Progress Note, Physician History of Present Illness: stable no new issues - Current Medication List Current Medications: Active Medications Finasteride (Proscar -) 5 mg PO DAILY [facility] Last Admin: 06/24/19 10:47 Dose: 5 mg Heparin Sodium (Porcine) (Heparin -) 5,000 unit SQ TID [facility] Last Admin: 06/24/19 06:07 Dose: 5,000 unit Vancomycin HCl 750 mg/ (Dextrose) 250 mls @ 150 mls/hr IVPB Q24H [facility]; Protocol Last Admin: 06/23/19 15:21 Dose: 150 mls/hr Lactobacillus Acidophilus (Bacid -) 1 tab PO HS [facility] Last Admin: 06/23/19 21:54 Dose: 1 tab - Objective Vital Signs: Vital Signs Temperature 95.7 F L 06/24/19 06:25 Pulse Rate 89 06/24/19 06:25 Respiratory Rate 21 H 06/24/19 06:25 Blood Pressure 137/87 06/24/19 06:25 O2 Sat by Pulse Oximetry (%) 98 06/22/19 20:27 Constitutional: Yes: No Distress, Calm Cardiovascular: Yes: S1, S2 Respiratory: Yes: Regular, CTA Bilaterally Gastrointestinal: Yes: Normal Bowel Sounds, Soft Genitourinary: Yes: Carreon Present Musculoskeletal: Yes: WNL Extremities: Yes: WNL Neurological: Yes: Alert, Oriented Psychiatric: Yes: Alert, Oriented Labs: CBC, BMP 06/24/19 08:30 06/24/19 08:30 Assessment/Plan 89M w/ pmhx of BPH (with chronic carreon due to urinary retention), hx of CAUTIs, HTN/HLD (diet-controlled) presents in the ED for AMS likely due to complicated UTI. roblem List - Problems (1) BPH (benign prostatic hyperplasia) Code(s): N40.0 - BENIGN PROSTATIC HYPERPLASIA WITHOUT LOWER URINRY TRACT SYMP Qualifiers: Lower urinary tract symptom presence: symptoms present Lower urinary tract symptom detail: urinary obstruction Qualified Code(s): N40.1 - Benign prostatic hyperplasia with lower urinary tract symptoms; N13.8 - Other obstructive and reflux uropathy (2) Delirium Code(s): R41.0 - DISORIENTATION, UNSPECIFIED (3) Carreon catheter in place Code(s): Z92.89 - PERSONAL HISTORY OF OTHER MEDICAL TREATMENT (4) FARAZ (acute kidney injury) Code(s): N17.9 - ACUTE KIDNEY FAILURE, UNSPECIFIED (5) UTI (urinary tract infection) Code(s): N39.0 - URINARY TRACT INFECTION, SITE NOT SPECIFIED Qualifiers: Urinary tract infection type: catheter-associated UTI Indwelling urinary catheter type: indwelling urethral catheter Encounter type: initial encounter Qualified Code(s): T83.511A - Infection and inflammatory reaction due to indwelling urethral catheter, initial encounter; N39.0 - Urinary tract infection , site not specified Assessment/Plan Complicated UTI Urinary retention BPH Indwelling Carreon - Catheter changed FARAZ ?CKD -- Urine Cx +E. faecalis -- Continue Vancomycin with monitoring of renal function -- Urology f/u leukocytosis resolved
--- NOTE | 2019-06-24 14:10 | PN ---
Physical Exam: SUBJECTIVE: Patient seen and examined 89 y/o pmh of bph w/ chronic carreon for retention, CAUTI, htn, hld, presents for urinary retention. Pt appears comfortable and states that he is ready to go home. Pt reports no other overnight events, afebrile, asymptomatic. No further c /o or issues. Denies f/c/n/v/d, sob, chest pain, abdominal pain. OBJECTIVE: Vital Signs Last Vital Signs Temp Pulse Resp BP Pulse Ox 95.7 F L 89 21 H 137/87 98 06/24/19 06:25 06/24/19 06:25 06/24/19 06:25 06/24/19 06:25 06/22/19 20:27 GENERAL: Cooperative, NAD. AAOx3. HEENT: AT/NC. EOMI. NECK: supple without lymphadenopathy, JVD, LUNGS: CTA B/L. No wheezes noted. HEART: RRR. Normal S1, S2. No mgr ABDOMEN: Soft, NT/ND. Normoactive bowel sounds. Nayely removed, surgical scar healing well. : Carreon catheter in place. MUSCULOSKELETAL: Normal range of motion at all joints. No bony deformities or tenderness. No CVA tenderness. EXTREMITIES: 1+ peripheral edema noted b/l. Moves all extremities spontaneously. NEUROLOGICAL: Cranial nerves II-XII intact. Normal speech. SKIN: Warm, dry, Laboratory Results - last 24 hr 06/24/19 06/24/19 08:30 08:30 WBC 7.2 RBC 4.03 Hgb 12.8 Hct 39.0 MCV 96.8 H MCH 31.9 MCHC 32.9 RDW 14.0 Plt Count 244 MPV 9.8 Absolute Neuts (auto) 4.7 Neutrophils % 64.7 Lymphocytes % 17.3 Monocytes % 9.2 Eosinophils % 7.3 H Basophils % 1.5 Nucleated RBC % 0 Sodium 139 Potassium 4.2 Chloride 108 H Carbon Dioxide 25 Anion Gap 6 L BUN 25.4 H Creatinine 1.3 Est GFR (CKD-EPI)AfAm 56.07 Est GFR (CKD-EPI)NonAf 48.38 Random Glucose 97 Calcium 8.3 L Total Bilirubin 0.8 AST 19 ALT 24 Alkaline Phosphatase 61 Total Protein 6.4 Albumin 3.2 L Active Medications Current Medications Finasteride (Proscar -) 5 mg PO DAILY [facility] Last Admin: 06/24/19 10:47 Dose: 5 mg Heparin Sodium (Porcine) (Heparin -) 5,000 unit SQ TID [facility] Last Admin: 06/24/19 06:07 Dose: 5,000 unit Vancomycin HCl 750 mg/ (Dextrose) 250 mls @ 150 mls/hr IVPB Q24H [facility]; Protocol Last Admin: 06/23/19 15:21 Dose: 150 mls/hr Lactobacillus Acidophilus (Bacid -) 1 tab PO HS [facility] Last Admin: 06/23/19 21:54 Dose: 1 tab Home Medications Medication Instructions Recorded Finasteride [Proscar -] 5 mg PO DAILY #30 tablet 08/24/18 ASSESSMENT/PLAN: 89M w/ pmhx of BPH, multiple previous CAUTIs, htn, hld presents in the ED for AMS is being managed for complicated UTI. #Acute Complicated UTI; 2/2 chronic carreon use due to urinary retention -Urine Cx +E. faecalis -Continue Vancomycin (D4) with monitoring of renal function- as per ID -Pt will remain in hospital till he finishes his Vanc treatment -Vanc trough for the am- As Per ID- abx will be d/c tomorrow -Vanc 750 for 2 more days -Random Vanc 7.3 -Probiotics given -hx of ESBL UTI -U/A positive -UCx -group D strep -Urology f/u #Acute Metabolic Encephalopathy -Stable. No signs of altered mental state -Head CT showed no acute IC pathology; moderate ventricular dilatation noted probably due to central atrophy, NPH may demonstrate similar appearance -Neuro checks #Inguinal Hernia Surgery was done in [facility] labs stable Nayely removed Surgical site healing well #Hx of BPH Cont home meds: Finasteride 5 QD #Hx of HTN/HLD; diet controlled. Patient only walked 20 ft on walker #Prophylaxis DVT: SQH #FEN -PO hydration -sodium/cholesterol-controlled diet Dispo -cont abx D4, neuro checks, urology f/u, f/u w/ social work for rehab or sending patient home ATTENDING PHYSICIAN STATEMENT I saw and evaluated the patient. I reviewed the resident's note and discussed the case with the resident. I agree with the resident's findings and plan as documented. SUBJECTIVE: OBJECTIVE: ASSESSMENT AND PLAN:
--- NOTE | 2019-06-24 14:32 | PN ---
Teaching Attending Note Name of Resident: Jermaine Ambriz ATTENDING PHYSICIAN STATEMENT I saw and evaluated the patient. I reviewed the resident's note and discussed the case with the resident. I agree with the resident's findings and plan as documented. SUBJECTIVE: Patient is comfortable with no acute distress. Vital Signs Temperature 95.7 F L 06/24/19 06:25 Pulse Rate 89 06/24/19 06:25 Respiratory Rate 21 H 06/24/19 06:25 Blood Pressure 137/87 06/24/19 06:25 O2 Sat by Pulse Oximetry (%) 98 06/22/19 20:27 GENERAL: The patient is awake, alert, and fully oriented, in no acute distress. HEAD: Normal with no signs of trauma. EYES: PERRL, extraocular movements intact, sclera anicteric, conjunctiva clear. ENT: Ears normal, oropharynx clear without exudates, moist mucous membranes. NECK: Trachea midline, full range of motion, supple. LUNGS: Breath sounds equal, clear to auscultation bilaterally, no wheezes, no crackles, no accessory muscle use. HEART: Regular rate and rhythm, S1, S2 without murmur, rub or gallop. ABDOMEN: Soft, NT,ND, normoactive bowel sounds, no guarding, no rebound, no hepatosplenomegaly, no masses. s/p lap hernial repair in [place] EXTREMITIES: 2+ pulses, warm, well-perfused, no edema. NEUROLOGICAL: Cranial nerves II through XII grossly intact. Normal speech, gait not observed. PSYCH: Normal mood, normal affect. SKIN: Warm, dry, normal turgor, no rashes or lesions noted : Chronic carreon catheter CBCD WBC 7.2 K/mm3 (4.0-10.0) 06/24/19 08:30 RBC 4.03 M/mm3 (4.00-5.60) 06/24/19 08:30 Hgb 12.8 GM/dL (11.7-16.9) 06/24/19 08:30 Hct 39.0 % (35.4-49) 06/24/19 08:30 MCV 96.8 fl (80-96) H 06/24/19 08:30 MCHC 32.9 g/dl (32.0-35.9) 06/24/19 08:30 RDW 14.0 % (11.9-15.9) 06/24/19 08:30 Plt Count 244 K/MM3 (134-434) 06/24/19 08:30 MPV 9.8 fl (7.5-11.1) 06/24/19 08:30 CMP Sodium 139 mmol/L (136-145) 06/24/19 08:30 Potassium 4.2 mmol/L (3.5-5.1) 06/24/19 08:30 Chloride 108 mmol/L (98-107) H 06/24/19 08:30 Carbon Dioxide 25 mmol/L (21-32) 06/24/19 08:30 Anion Gap 6 MMOL/L (8-16) L 06/24/19 08:30 BUN 25.4 mg/dL (7-18) H 06/24/19 08:30 Creatinine 1.3 mg/dL (0.55-1.3) 06/24/19 08:30 Random Glucose 97 mg/dL (74-106) 06/24/19 08:30 Calcium 8.3 mg/dL (8.5-10.1) L 06/24/19 08:30 Total Bilirubin 0.8 mg/dL (0.2-1) 06/24/19 08:30 AST 19 U/L (15-37) 06/24/19 08:30 ALT 24 U/L (13-61) 06/24/19 08:30 Alkaline Phosphatase 61 U/L (45-117) 06/24/19 08:30 Total Protein 6.4 g/dl (6.4-8.2) 06/24/19 08:30 Albumin 3.2 g/dl (3.4-5.0) L 06/24/19 08:30 Current Medications Generic Name Dose Route Start Last Admin Trade Name Freq PRN Reason Stop Dose Admin Finasteride 5 mg 06/19/19 11:15 06/24/19 10:47 Proscar - PO 5 mg DAILY [facility] Administration Heparin Sodium (Porcine) 5,000 unit 06/19/19 14:00 06/24/19 06:07 Heparin - SQ 5,000 unit TID [facility] Administration Vancomycin HCl 750 mg/ 250 mls @ 150 mls/hr 06/21/19 14:30 06/23/19 15:21 Dextrose IVPB 150 mls/hr Q24H [facility] Administration Protocol Lactobacillus Acidophilus 1 tab 06/23/19 22:00 06/23/19 21:54 Bacid - PO 1 tab HS [facility] Administration Home Medications Medication Instructions Recorded Finasteride [Proscar -] 5 mg PO DAILY #30 tablet 08/24/18 06/19/19 08:50 Urine - Urine - Catheterized Urine Culture - Preliminary Enterococcus Faecalis Head CT: moderate ventricular dilatation is noted due to central atrophy. Normal pressure hydrocephalus may demonstrate a similar appearance ASSESSMENT AND PLAN: Patient is a 89yo male with Pmhx of BPH (with chronic carreon catheter due to having urinary retention), Hx of CAUTIs, HTN/HLD (diet-controlled) presents in the ED for AMS likely due to complicated UTI. #Acute Complicated UTI: Enterococcus Faecalis sensitivity positive for vanco, one more day of IV vanco as per Eddie and patient can be dischorged home after the last dose tomorrow. # Moderate ventricular dilatation with central atrophy. #Hx of BPH; Cont home meds: Finasteride 5 QD #Hx of HTN/HLD; diet controlled. DVT Prophylaxis: heparin sq patient walked 75 feet can be discharged home in am post the last dose of vanco. check if the gloria are removed from the incision site since patient had a lap hernial repair in [place].
[2019-06-24] MEDS: VANCOMYCIN 750 MG in DEXTROSE 5%-WATER - 250 ML IVPB SCH (15:09)
[2019-06-24] MEDS: LACTOBACILLUS ACIDOPHILUS 1 TABLET PO SCH (21:25)
[2019-06-25 06:10] VITALS: PULSE 82
[2019-06-25] MEDS: HEPARIN NA (PORCINE) 5,000 UNITS/ML 1ML VIAL SQ SCH ×2 (06:23→14:45)
[2019-06-25 08:32] LABS: BASO % 1.1 % (0-2.0); EOS % 6.2 % (0-4.5); HEMATOCRIT 37.5 % (35.4-49); HEMOGLOBIN 12.8 GM/dL (11.7-16.9); LYMPH % 18.4 % (8-40); MCH 32.7 pg (25.7-33.7); MCHC 34.1 g/dl (32.0-35.9); MEAN PLT VOLUME 9.6 fl (7.5-11.1); MONO % 8.6 % (3.8-10.2); NEUT % 65.7 % (42.8-82.8); PLATELET COUNT 253 K/MM3 (134-434); RBC 3.91 M/mm3 (4.00-5.60); RDW 13.8 % (11.9-15.9)
[2019-06-25 09:01] LABS: ALBUMIN 3.5 g/dl (3.4-5.0); BILIRUBIN,TOTAL 0.8 mg/dL (0.2-1); BLOOD UREA NITROGEN 31.9 mg/dL (7-18); CALCIUM 8.9 mg/dL (8.5-10.1); CREATININE 1.5 mg/dL (0.55-1.3); POTASSIUM 4.3 mmol/L (3.5-5.1)
[2019-06-25 11:11] VITALS: BP 109/69; TEMP 97.5
[2019-06-25] MEDS: FINASTERIDE 5 MG TABLET (FP) PO SCH (11:18)
--- NOTE | 2019-06-25 12:44 | PN ---
Progress Note, Physician History of Present Illness: stable doing well no issues awake and alert - Current Medication List Current Medications: Active Medications Finasteride (Proscar -) 5 mg PO DAILY [facility] Last Admin: 06/25/19 11:18 Dose: 5 mg Heparin Sodium (Porcine) (Heparin -) 5,000 unit SQ TID [facility] Last Admin: 06/25/19 06:23 Dose: 5,000 unit Vancomycin HCl 750 mg/ (Dextrose) 250 mls @ 150 mls/hr IVPB Q24H [facility]; Protocol Last Admin: 06/24/19 15:09 Dose: 150 mls/hr Lactobacillus Acidophilus (Bacid -) 1 tab PO HS [facility] Last Admin: 06/24/19 21:25 Dose: 1 tab - Objective Vital Signs: Vital Signs Temperature 97.5 F L 06/25/19 11:09 Pulse Rate 82 06/25/19 11:09 Respiratory Rate 20 06/25/19 11:09 Blood Pressure 109/69 06/25/19 11:09 O2 Sat by Pulse Oximetry (%) 96 06/25/19 11:11 Constitutional: Yes: No Distress, Calm Cardiovascular: Yes: S1, S2 Respiratory: Yes: Regular, CTA Bilaterally Gastrointestinal: Yes: Normal Bowel Sounds, Soft Genitourinary: Yes: Carreon Present Musculoskeletal: Yes: WNL Extremities: Yes: WNL Neurological: Yes: Alert, Oriented Psychiatric: Yes: Alert, Oriented Labs: CBC, BMP 06/25/19 07:30 06/25/19 07:30 Assessment/Plan 89M w/ pmhx of BPH (with chronic carreon due to urinary retention), hx of CAUTIs, HTN/HLD (diet-controlled) presents in the ED for AMS likely due to complicated UTI. roblem List - Problems (1) BPH (benign prostatic hyperplasia) Code(s): N40.0 - BENIGN PROSTATIC HYPERPLASIA WITHOUT LOWER URINRY TRACT SYMP Qualifiers: Lower urinary tract symptom presence: symptoms present Lower urinary tract symptom detail: urinary obstruction Qualified Code(s): N40.1 - Benign prostatic hyperplasia with lower urinary tract symptoms; N13.8 - Other obstructive and reflux uropathy (2) Delirium Code(s): R41.0 - DISORIENTATION, UNSPECIFIED (3) Carreon catheter in place Code(s): Z92.89 - PERSONAL HISTORY OF OTHER MEDICAL TREATMENT (4) FARAZ (acute kidney injury) Code(s): N17.9 - ACUTE KIDNEY FAILURE, UNSPECIFIED (5) UTI (urinary tract infection) Code(s): N39.0 - URINARY TRACT INFECTION, SITE NOT SPECIFIED Qualifiers: Urinary tract infection type: catheter-associated UTI Indwelling urinary catheter type: indwelling urethral catheter Encounter type: initial encounter Qualified Code(s): T83.511A - Infection and inflammatory reaction due to indwelling urethral catheter, initial encounter; N39.0 - Urinary tract infection , site not specified Assessment/Plan Complicated UTI Urinary retention BPH Indwelling Carreon - Catheter changed FARAZ ?CKD can stop abx rest as per the tea,
[2019-06-25] MEDS: VANCOMYCIN 750 MG in DEXTROSE 5%-WATER - 250 ML IVPB SCH (14:45)
--- NOTE | 2019-06-25 14:48 | PN ---
Teaching Attending Note Name of Resident: Helen Phan ATTENDING PHYSICIAN STATEMENT I saw and evaluated the patient. I reviewed the resident's note and discussed the case with the resident. I agree with the resident's findings and plan as documented. SUBJECTIVE: No fever or chills. has no pain. No SOB OBJECTIVE: NAD CV: RRR Lungs: CTAb Ext : No edema or erythema. ASSESSMENT AND PLAN: 89 y/o man with h/o diet controlled HTN and HLP, urinary retention, ,L inguinal hernia repair, BPH, chronic carreon, who presented to [facility] and treated for a complicated UTI. 1- Complicated UTI 2- CKD 3- H/o diet controlled HLP, and HTN plan: - last day of VAnco . sensitivity reviewed. patient received 2 days of meropenem and 5 of vanco. totla of 7 days of Abx - cont finasteride - cont carreon ( changed this admission ) - f/u with his urologist in [place]. Flying back tomorrow k[place] home
--- NOTE | 2019-06-25 15:14 | DS ---
Physical Exam: SUBJECTIVE: Patient seen and examined and pt reports no overnight events, afebrile, asymptomatic. No further c/o or issues. Denies f/c/n/v/d, sob, chest pain, abdominal pain. OBJECTIVE: Vital Signs Last Vital Signs Temp Pulse Resp BP Pulse Ox 97.5 F L 82 20 109/69 96 06/25/19 11:09 06/25/19 11:09 06/25/19 11:09 06/25/19 11:09 06/25/19 11:11 PHYSICAL EXAM GENERAL: Cooperative, NAD. AAOx3. HEENT: AT/NC. EOMI. NECK: supple without lymphadenopathy, JVD, LUNGS: CTA B/L. No wheezes noted. HEART: RRR. Normal S1, S2. No mgr ABDOMEN: Soft, NT/ND. Normoactive bowel sounds. Nayely removed, surgical scar healing well. : Carreon catheter in place. MUSCULOSKELETAL: Normal range of motion at all joints. No bony deformities or tenderness. No CVA tenderness. EXTREMITIES: 1+ peripheral edema noted b/l. Moves all extremities spontaneously. NEUROLOGICAL: Cranial nerves II-XII intact. Normal speech. SKIN: Warm, dry, LABS Laboratory Results - last 24 hr 06/25/19 06/25/19 07:30 07:30 WBC 7.0 RBC 3.91 L Hgb 12.8 Hct 37.5 MCV 96.0 MCH 32.7 MCHC 34.1 RDW 13.8 Plt Count 253 MPV 9.6 Absolute Neuts (auto) 4.6 Neutrophils % 65.7 Lymphocytes % 18.4 Monocytes % 8.6 Eosinophils % 6.2 H Basophils % 1.1 Nucleated RBC % 0 Sodium 139 Potassium 4.3 Chloride 106 Carbon Dioxide 26 Anion Gap 7 L BUN 31.9 H Creatinine 1.5 H Est GFR (CKD-EPI)AfAm 47.16 Est GFR (CKD-EPI)NonAf 40.69 Random Glucose 103 Calcium 8.9 Total Bilirubin 0.8 AST 19 ALT 27 Alkaline Phosphatase 68 Total Protein 7.0 Albumin 3.5 Microbiology 06/19/19 08:50 Urine - Urine - Catheterized Urine Culture - Final Enterococcus Faecalis HOSPITAL COURSE: Date of Admission:06/19/19 89M w/ pmhx of BPH, multiple previous CAUTIs, htn, hld, hx of ESBL+ presents in the ED for AMS is admitted for complicated UTI to med-surg floor. Pt's urine culture showed E. Faecalis, resistant to levofloxacin and tetracycline. Thus, was treated with 7 days of antibiotics (2 days of meropenem and 5 of vanco) and pts symptoms improved. Pts UTI resulted from an infected catheter, which was changed. 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, NPH may demonstrate similar appearance EKG- NSR Current Medications Finasteride (Proscar -) 5 mg PO DAILY [facility] Last Admin: 06/25/19 11:18 Dose: 5 mg Heparin Sodium (Porcine) (Heparin -) 5,000 unit SQ TID [facility] Last Admin: 06/25/19 14:45 Dose: 5,000 unit Vancomycin HCl 750 mg/ (Dextrose) 250 mls @ 150 mls/hr IVPB Q24H [facility]; Protocol Last Admin: 06/25/19 14:45 Dose: 150 mls/hr Lactobacillus Acidophilus (Bacid -) 1 tab PO HS [facility] Last Admin: 06/24/19 21:25 Dose: 1 tab Home Medications Medication Instructions Recorded Finasteride [Proscar -] 5 mg PO DAILY #30 tablet 08/24/18 Date of Discharge: 06/25/19 Discharge Summary Problems reviewed: Yes Reason For Visit: COMPLICATED URINARY TRACT INFECTIN,DELIRIUM Current Active Problems BPH (benign prostatic hyperplasia) (Chronic) Delirium (Chronic) 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 While you were here we evaluated you for your urinary tract infection with tests including lab work, blood culture, and imaging. We treated your infection with antibiotics. Please follow up with your Urologist in [place] in one week to continue management of your carreon. Continue all your medications as prescribed Follow up with your primary care physician within 1 week. Return to the emergency room if you have any chest pain, shortness of breath, nausea, vomiting or worsening of your symptoms. Referrals: Don Conklin [Other] Disposition: HOME - Home Medications Comprehensive Discharge Medication List: Ambulatory Orders Finasteride [Proscar -] 5 mg PO DAILY #30 tablet 08/24/18 - Discharge Referral Referred to [facility] No ATTENDING PHYSICIAN STATEMENT I saw and evaluated the patient. I reviewed the resident's note and discussed the case with the resident. I agree with the resident's findings and plan as documented. SUBJECTIVE: OBJECTIVE: ASSESSMENT AND PLAN:
== END 2019-06-25 19:00 | disposition home or self-care (01) | DRG 698 ==
LOC: JER 06:33 → JERBED 09:27 → J6S 14:42
PROVIDERS: ADMIT Internal Medicine; ATTEND Internal Medicine
DX: T83.511A Infection and inflammatory reaction due to indwelling urethral catheter, initial encounter (principal); G93.41 Metabolic encephalopathy; N17.9 Acute kidney failure, unspecified; G91.2 (Idiopathic) normal pressure hydrocephalus; E78.5 Hyperlipidemia, unspecified; N40.1 Benign prostatic hyperplasia with lower urinary tract symptoms; R33.8 Other retention of urine; R41.0 Disorientation, unspecified; Y84.6 Urinary catheterization as the cause of abnormal reaction of the patient, or of later complication, without mention of misadventure at the time of the procedure; N39.0 Urinary tract infection, site not specified; B95.2 Enterococcus as the cause of diseases classified elsewhere; K40.90 Unilateral inguinal hernia, without obstruction or gangrene, not specified as recurrent; I12.9 Hypertensive chronic kidney disease with stage 1 through stage 4 chronic kidney disease, or unspecified chronic kidney disease; N18.9 Chronic kidney disease, unspecified
CPT/HCPCS: 36415; 70450-TC; 80048; 80053; 81003; 83735; 84100; 85025; 85027; 87086; 87186; 93005; 93010; 97116-GP; 99284-25; G0480; J1644